=== PATIENT | male | born 1960 | race Caucasian/White ===

== ENCOUNTER 2018-07-20 12:53 | Inpatient (IN) | payer OTHER ==
[2018-07-20 13:33] LABS: #Basophils 0.1 thou/uL (0.0-0.2); #Lymphocytes 1.4 thou/uL (1.20-3.40); #Monocytes 0.7 thou/uL (0.11-0.59); #Neutrophils 5.9 thou/uL (1.40-6.50); %Basophils 0.9 % (0.0-1.0); %Eosinophils 0.6 % (0.0-10.0); %Lymphocytes 17.3 % (21.0-51.0); %Monocytes 8.2 % (0.0-10.0); Hemoglobin 12.8 g/dL (14.0-18.0); Mean Corpuscular HGB CONC 34.1 g/dL (32.0-36.0); Mean Corpuscular Volume 90.9 fL (78.0-98.0); Mean Platelet Volume 8.3 fL (7.4-10.4); Platelet Count 237 thou/uL (130-400); RBC Distribution Width 11.4 % (11.5-14.5); Red Blood Cell (RBC) Count 4.12 mill/uL (4.70-6.10); White Blood Cell (WBC) Count 8.1 thou/uL (4.8-10.8)
--- NOTE | 2018-07-20 13:54 | RAD ---
CHEST TWO VIEWS: HISTORY: Cough and weight loss. FINDINGS: The cardiac silhouette and pulmonary vasculature are unremarkable. The mediastinum is midline. No c onfluent air space consolidation, pneumothorax, or pleural fluid. The lungs are hyperinflated with f lattening of each hemidiaphragm. IMPRESSION: Pulmonary hyperinflation. No active cardiopulmonary abnormalities are otherwise demonstrated. POS: TPC
[2018-07-20 13:56] LABS: ALT (SGPT) 21 U/L (8-55); AST (SGOT) 17 U/L (5-34); Alkaline Phosphatase 108 U/L (40-150); Anion Gap 12 mmol/L (10-20); BUN (Urea Nitrogen) 62 mg/dL (8.4-25.7); Bilirubin, Total 0.4 mg/dL (0.2-1.2); CK (CPK) 183 U/L (30-200); CRP (Inflammatory) Less than 0.50 mg/dL (= or < 0.5); Calc. Creatinine Clearance 0 mL/min (70-130); Calcium 9.3 mg/dL (7.8-10.44); Carbon Dioxide 22 mmol/L (22-29); Chloride 98 mmol/L (98-107); Estimated GFR-MDRD 17; Globulin 2.9 g/dL (2.4-3.5); Glucose 105 mg/dL (70-105); Potassium 5.1 mmol/L (3.5-5.1); Protein, Total 6.9 g/dL (6.0-8.3); Sodium 127 mmol/L (136-145)
[2018-07-20] MEDS ORDERED: Sodium Chloride 0.9% 1,000 ML IV SCH (19:00)
[2018-07-20] MEDS ORDERED: Acetaminophen 325 MG TAB PO PRN (19:23)
[2018-07-20] MEDS ORDERED: hydrALAZINE 20 MG/ML VIAL SLOW IVP PRN (19:23)
[2018-07-20 19:35] VITALS: BMI 25.1
[2018-07-20 20:59] LABS: Free T4 (Free Thyroxine) 1.06 ng/dL (0.70-1.48); Thyroid Stimulating Hormone 2.5432 uIU/mL (0.35-4.94)
[2018-07-20] MEDS: Famotidine 20 MG TAB PO SCH (21:45)
[2018-07-20] MEDS: hydrALAZINE 25 MG TAB PO SCH (21:45)
[2018-07-20] MEDS: Sodium Chloride 0.9% 1,000 ML IV SCH (21:45)
[2018-07-20] MEDS: Heparin 5,000 UNITS/ML VIAL SC SCH (21:47)
--- NOTE | 2018-07-20 23:02 | HP ---
PRIMARY CARE PHYSICIAN: Elizabeth Cook, CAVALRY OFFICER-C CHIEF COMPLAINT: "I've been losing weight and have an upset stomach and diarrhea." HISTORY OF PRESENT ILLNESS: Mr. Gama is a pleasant 57-year-old gentleman, who has a history of hypertension as well as hyperlipidemia. He was in his usual state of health until 3 weeks ago when he began having loose stools and diarrhea. He denies having any blood in his stools, however. He also was complaining of an upset stomach, which was not necessarily pain. He had some nausea as well, but no vomiting, no hematemesis. He also has had night sweats over the last 2 weeks as well as subjective fever. He also says he has been coughing, which has been nonproductive, but no hemoptysis. He also denies any chest pain or shortness of breath or dizziness. No lightheadedness. He says that he lost 30 pounds in the last 3 weeks as a result of these symptoms. He denies having any pain in any other parts of his body. He also denies any foreign travel. No sick contacts. 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 When he was evaluated in the ER, he had a chest x-ray done, which was essentially negative, however, he had an elevated creatinine as well as a low sodium and he is being admitted for further evaluation. REVIEW OF SYSTEMS: All systems are reviewed and are negative except for that mentioned in the history of present illness. PAST MEDICAL HISTORY: Significant for hypertension, hyperlipidemia, and tobacco abuse. PAST SURGICAL HISTORY: He had surgery on his right ear. ALLERGIES: NO KNOWN DRUG ALLERGIES. SOCIAL HISTORY: He is a smoker of a pack a day for 25 years. Denies any alcohol use. 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 FAMILY HISTORY: Significant for hypertension and diabetes. No history of any cancer. MEDICATIONS: Include Lipitor and he says some other blood pressure medication which in the records that appears may be lisinopril and hydrochlorothiazide. PHYSICAL EXAMINATION: GENERAL: He is alert and oriented. He appears to be in no acute distress. He is well developed and well nourished. VITAL SIGNS: Blood pressure is 167/67, heart rate 63, respiratory rate of 18, temperature is 97.9, and O2 saturation is 99% on room air. HEENT: His pupils are equal, round, and reactive. Extraocular muscles are intact. His sclerae are anicteric. Throat, there is no erythema, no exudates. NECK: No adenopathy. He did have a bruit overlying the right carotid. CARDIOVASCULAR: He has a normal S1, S2. I did not appreciate an S3 or S4. No murmurs, clicks or rubs. ABDOMEN: Soft. It is nontender, nondistended. Positive for bowel sounds. There is no rebound, no guarding, no organomegaly. EXTREMITIES: There is no clubbing or cyanosis. No edema. No joint effusions. NEUROLOGIC: His cranial nerves 2 through 12 are intact and his muscle strength is 5/5 in both his upper and lower extremities. SKIN AND INTEGUMENT: There is no skin change and no rash. LABORATORY DATA: White blood cell count 8.1, hemoglobin 12.8, hematocrit is 37.5, and platelet count is 237. Sodium 127, potassium 5.1, chloride is 98, CO2 is 22, BUN of 62, creatinine 3.67, glucose is 105. His liver function tests were normal. Chest x-ray showed moderate hyperexpansion of the lungs. There is no infiltrate or effusions, this is by my reading. ASSESSMENT/PLAN: This is a pleasant 57-year-old gentleman, who presents to the emergency room with multiple medical complaints including upset stomach and diarrhea and was found to have acute renal failure as well as unexplained weight loss. He will be admitted for workup for this. 1. For the acute renal failure, he will be placed on IV fluids as it is likely to be volume related. However, we will also get a renal ultrasound and urine electrolytes to help us differentiate and also get a nephrology consult. 2. Hyponatremia. Again, I suspect this is volume related. We will place him on hydration. Check urine and serum osmolalities to differentiate as previously mentioned, and further recommendations will be based on these results. 3. Unexplained weight loss. We will check thyroid function tests as well as rule him out for tuberculosis even though he has what appears to be a normal chest x-ray and get an abdominal ultrasound as well. 4. Hypertension. We will place him on p.r.n. medication for now holding the lisinopril given the potential for renal failure as well as hyponatremia and he will be placed on deep venous thrombosis and gastrointestinal prophylaxis. Job ID: [id number]
[2018-07-20 23:32] LABS: Creatinine, Urine 45.68 mg/dL (63-166)
[2018-07-21] MEDS: Sodium Chloride 0.9% 1,000 ML IV SCH (03:50)
[2018-07-21 06:53] LABS: #Basophils 0.1 thou/uL (0.0-0.2); #Eosinphils 0.1 thou/uL (0.0-0.7); #Lymphocytes 1.8 thou/uL (1.20-3.40); #Neutrophils 3.6 thou/uL (1.40-6.50); %Eosinophils 1.2 % (0.0-10.0); %Lymphocytes 27.1 % (21.0-51.0); %Monocytes 14.8 % (0.0-10.0); %Neutrophils 55.8 % (42.0-75.0); Hemoglobin 12.8 g/dL (14.0-18.0); Mean Corpuscular Hemoglobin 30.4 pg (27.0-31.0); Mean Corpuscular Volume 92.1 fL (78.0-98.0); Mean Platelet Volume 8.4 fL (7.4-10.4); Platelet Count 225 thou/uL (130-400); RBC Distribution Width 11.5 % (11.5-14.5); Red Blood Cell (RBC) Count 4.19 mill/uL (4.70-6.10); White Blood Cell (WBC) Count 6.5 thou/uL (4.8-10.8)
[2018-07-21 07:16] LABS: Anion Gap 15 mmol/L (10-20); BUN (Urea Nitrogen) 61 mg/dL (8.4-25.7); Calc. Creatinine Clearance 22 mL/min (70-130); Calcium 9.2 mg/dL (7.8-10.44); Carbon Dioxide 21 mmol/L (22-29); Chloride 103 mmol/L (98-107); Estimated GFR-MDRD 16; Glucose 78 mg/dL (70-105); Potassium 5.8 mmol/L (3.5-5.1); Sodium 133 mmol/L (136-145)
--- NOTE | 2018-07-21 08:38 | ULT ---
COMPLETE ABDOMEN ULTRASOUND: Date: 07/21/18 INDICATION: History of nausea, vomiting, and elevated BUN & creatinine. FINDINGS: There are gallbladder stones and sludge present within the gallbladder. Gallbladder wall is within no rmal limits. No pericholecystic fluid or sonographic Dove's sign is present. Visualized aorta and I VC are within normal limits. Pancreas is within normal limits. No focal hepatic lesion is evident. Ri ght kidney measures 9.2 cm in length and left kidney measures 9.4 cm. No focal renal lesion or hydron ephrosis evident. Spleen measures 10.6 cm. Common bile duct measures 6.0 mm. IMPRESSION: Cholelithiasis with gallbladder sludge, without sonographic evidence of acute cholecystitis. POS: BH
[2018-07-21] MEDS: Heparin 5,000 UNITS/ML VIAL SC SCH ×3 (08:51→20:15)
[2018-07-21] MEDS: hydrALAZINE 25 MG TAB PO SCH (08:54)
[2018-07-21] MEDS ORDERED: Metoprolol Tartrate 25 MG TAB PO SCH (09:15)
[2018-07-21] MEDS ORDERED: Sodium Bicarbonate 75 MEQ in Sodium Chloride 0.45% 1,000 ML IV SCH (09:15)
[2018-07-21] MEDS ORDERED: Insulin Regular 300 UNITS/3 ML VIAL IVP SCH (09:15)
[2018-07-21] MEDS ORDERED: Dextrose 50% Abboject 50 ML SYRINGE SLOW IVP SCH (09:15)
[2018-07-21 10:03] LABS: Iron 48 ug/dL (65-175); Iron Binding Capacity, Total 235 mcg/dL (261-462)
[2018-07-21] MEDS ORDERED: Amlodipine 10 MG TAB PO SCH (12:15)
[2018-07-21 12:31] LABS: Bilirubin Negative (Negative); Blood, Urine Negative (Negative); Clarity CLEAR (Clear); Glucose, Urine (Dipstick) 100 mg/dL (Negative); Leukocyte Negative (Negative); Nitrite Negative (Negative); Protein, Urine (Dipstick) Negative (Neg-Trace); Urobilinogen 0.2 mg/dL (0.2-1.0); pH, Urine 5.5 (5.0-9.0)
[2018-07-21 12:33] LABS: Bacteria/HPF None Seen HPF (None Seen); Hyaline Casts/LPF 0-3 HYALINE CAST LPF (0-3 Hyaline); RBC/HPF 0-3 HPF (0-3); Squamous Epithelial None Seen HPF (0-3); WBC/HPF None Seen HPF (0-3)
--- NOTE | 2018-07-21 12:48 | CT ---
CT OF THE THORAX WITHOUT IV CONTRAST INDICATION: Cough COMPARISON: Chest radiograph dated July 20, 2018 TECHNIQUE: Multiple CT images were obtained of the thorax without IV contrast. Axial and coronal refo rmatted images were constructed from the raw data. FINDINGS: LUNGS: Mildly hyperinflated. There are tree-in-bud nodules seen within the apical and posterior segme nt of the right upper lobe Pleural spaces: Clear Lymph nodes: No pathologically enlarged lymph nodes. Heart and great vessels: The lack of IV contrast limits interrogation of the heart and great vessels. There is scattered thoracic and coronary artery calcifications. Upper abdomen: Visualized aspects of the upper abdomen appear within normal limits. Osseous structures: No acute osseous abnormality. There is scattered degenerative and osteoarthritic change present. IMPRESSION: Centrilobular opacities within the right upper lobe can be seen with bronchiolitis of inf ectious or inflammatory etiology.
--- NOTE | 2018-07-21 13:27 | CON ---
DATE OF CONSULTATION: 07/21/2018 CONSULTING PHYSICIAN: Bubba Lutz MD REASON FOR CONSULTATION: BRITTANI and hyponatremia. HISTORY OF PRESENT ILLNESS: A 57-year-old male with past medical history significant for hypertension and hyperlipidemia, who was admitted due to chronic loose stool as well as nausea, vomiting, and cough with sputum production associated with intermittent fever and weight loss of about 30 pounds as well as night sweats. The patient reported poor oral intake in the last two weeks, admitted to night sweats, but denied hemoptysis or recent travel. He is an every day smoker of about a pack a day for more than 40 years. He is still coughing with some nonclear sputum. He denies shortness of breath or chest pain or abdominal pain. He also denied palpitations, headache, dizziness, or leg swelling. The patient denied recreational drug use, but admitted to using Motrin due to the fever. He however did not measure the temperature at home, but admitted to chills. The patient also reported taking Aleve previously for headaches and body aches. 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 The patient was found to have elevated creatinine as well as low sodium necessitating Nephrology consult. Review of medical record showed that the patient had elevated creatinine which dates back to 2011, but he is not aware of chronic kidney disease diagnosis. Baseline creatinine seems to be around 1.5 to 2.0, but on presentation yesterday, creatinine was 3.67 and it did go up to 3.93 today. PAST MEDICAL HISTORY: 1. Hypertension. 2. Hyperlipidemia. 3. Tobacco abuse disorder. PAST SURGICAL HISTORY: Right ear surgery. FAMILY HISTORY: Significant for hypertension and diabetes in both parents who are diseased at this time. SOCIAL HISTORY: The patient is every day smoker of about a pack a day for the last 25 years. Admitted to occasional alcohol use, but denied recreational drug use. The patient is single, but has two children. ALLERGIES: NO KNOWN DRUG ALLERGIES REPORTED. MEDICATIONS: Prior to hospital medications. 1. Lipitor dose is unclear. 2. Metoprolol 12.5 mg p.o. b.i.d. 3. Lisinopril/hydrochlorothiazide 10/12.5 one tablet daily. Current medications. 1. Sodium chloride at 100 mL/h. 2. Pepcid 20 mg p.o. daily. 3. Heparin subcutaneous 5000 units t.i.d. 4. Hydralazine 25 mg p.o. t.i.d. 5. Tylenol 650 mg q.4 hours p.r.n. for pain. 6. Hydralazine 10 mg IV push q.4 p.r.n. for blood pressure elevations. PHYSICAL EXAMINATION: VITAL SIGNS: Temperature 98.5, pulse 60, respiratory rate 18, SpO2 of 95% on room air, and blood pressure is 186/81. GENERAL: Middle-aged male, in no obvious distress. Afebrile. Anicteric. Acyanotic. HEENT: Normocephalic, atraumatic. Pupils are equal and reacting to light. Oral mucosa is moist. NECK: Supple, nontender with full range of motion. No obvious mass was appreciated. CARDIOVASCULAR: Regular rhythm and rate with normal heart sounds one and two. RESPIRATORY: Fair air entry bilaterally with some transmitted sounds and crackles. No obvious rhonchi or use of accessory muscles was appreciated. GI: Full, soft, nontender, nondistended with normal bowel sounds. EXTREMITIES: Grossly normal looking atraumatic with no edema or erythema. Distal pulses are palpable. NEUROLOGIC: Conscious, alert, oriented x3 with appropriate mental status. Cranial nerves 2 through 12 are intact. The patient moves all extremities. DIAGNOSTIC DATA: BMP today showed sodium 133, potassium 5.8, chloride 103, CO2 of 21, anion gap 15, BUN 61, creatinine 3.93, glucose 78, calcium 9.2. Of note, on presentation yesterday, sodium was 127, potassium 5.1, BUN 62, creatinine 3.67. Liver enzymes were unremarkable on presentation. CBC today showed WBC 6.5, hemoglobin 12.8, MCV 92.1, platelet 225. Urine osmolality on July 20 is 291. Urine creatinine on July 20 is 45.68. Urine sodium on July 20 is 62. There is no urinalysis. Chest x-ray performed on July 20 showed pulmonary hyperinflation, but no active cardiopulmonary abnormality noticed. ASSESSMENT AND PLAN: 1. Acute kidney injury: This is superimposed on chronic kidney disease stage 3B. Review of medical records showed the patient had elevated creatinine dating back to 2011 with current baseline of about 1.5 to 2.0. This seems to be hemodynamic related due to chronic poor oral intake and increased gastrointestinal losses. The patient also has metabolic acidosis. Review of medication showed the patient also is on lisinopril and admitted using NSAIDs due to fever. Contribution from NSAID nephropathy cannot be ruled out at this time. Ultrasound of the abdomen showed smallish kidneys measuring 9.2 and 9.4 bilaterally with no mention of echogenicity or obstructive uropathy. We will start the patient on bicarb containing infusion and monitor renal function. We will also get urinalysis. We will plan on getting a formal renal ultrasound if renal function is not improving. 2. Hyperkalemia: Due to metabolic acidosis and chronic kidney disease. We will treat the patient with dextrose infusion with regular insulin as well as Kayexalate. We will repeat BMP with a view to treating the patient further if needed. 3. Hyponatremia: This most likely is due to volume depletion with appropriate ADH secretion. Sodium level is trending up with crystalloid. We will monitor closely. 4. Hypertension: We will start the patient on amlodipine. 5. Cough associated with subjective fever and unintentional weight loss: The patient has some crackles bibasilarly on chest examination, he is a chronic smoker. Bronchopneumonia is a concern. We will get CT of the chest and we will defer antibiotic therapy to the primary attending. 6. Fever: Most likely related to pneumonic process or cholelithiasis. 7. Nausea, vomiting, and diarrhea: This may be related to cholelithiasis with cholecystitis. Of note, ultrasound of the abdomen showed cholelithiasis with gallbladder sludge, but without sonographic evidence of acute cholecystitis. 8. Cholelithiasis with no acute cholecystitis. Many thanks for involving us in the care of this patient. We will follow along with you. Further recommendation to follow depending on hospital course and on review of other diagnostic test. Job ID: [id number]
--- NOTE | 2018-07-21 15:31 | PDOC.PN ---
- Subjective Encounter Start Date: 07/21/18 Encounter Start Time: 15:29 Mr. Gama was seen today in follow-up of unexplained weight loss and renal failure. He is sitting up in bed eating. He does not have any complaints. He denies chest pain or cough. He denies abdominal pain or nausea. He says he does not have any difficulty with eating. - Objective Resuscitation Status - Order Detail: 07/20/18 17:27 Resuscitation Status Routine Resuscitation Status: FULL: Full Resuscitation MAR Reviewed: Yes Vital Signs & Weight: Vital Signs (12 hours) Temp Pulse Resp BP BP Pulse Ox 07/21/18 13:26 72 132/74 07/21/18 08:54 67 169/75 H 07/21/18 08:00 95 07/21/18 07:45 98.5 F 60 18 186/81 H 95 07/21/18 04:00 98.6 F 69 18 158/77 H 98 Weight Weight 170 lb Result Diagrams: 07/21/18 05:54 07/21/18 05:54 Phys Exam - Physical Examination HEENT: PERRLA Respiratory: no wheezing, no rales, no rhonchi, clear to auscultation bilateral Cardiovascular: RRR, no significant murmur, no rub Gastrointestinal: soft, non-tender, no distention, positive bowel sounds Musculoskeletal: no edema, pulses present Neurological: non-focal Dx/Plan (1) Acute renal failure Status: Acute (2) Unexplained weight loss Code(s): R63.4 - ABNORMAL WEIGHT LOSS Status: Acute (3) Hypertension Code(s): I10 - ESSENTIAL (PRIMARY) HYPERTENSION Status: Chronic (4) Tobacco abuse Code(s): Z72.0 - TOBACCO USE Status: Chronic (5) Normocytic anemia Code(s): D64.9 - ANEMIA, UNSPECIFIED Status: Acute (6) Cholelithiases Code(s): K80.20 - CALCULUS OF GALLBLADDER W/O CHOLECYSTITIS W/O OBSTRUCTION Status: Acute - Plan * Acute renal failure vs. Acute on chronic kidney disease. He did not have improvement in his renal function following hydration- there was no evidence of hydronephrosis on ultrasound * Nephrology work-up is in progress. * Hyponatremia- improved * Unexplained weight loss- ? etiology- TB being ruled out- he had an abnormal CT scan of the chest- will consult Pulmonology * HTN- his blood pressure is not well controlled- and Amlodipine has been added * Normocytic anemia- this is consistent with chronic disease * Cholelithiasis- i doubt this is contributing to this present illness as he is able to eat without difficulty does not endorse any biliary symptoms
[2018-07-21 16:23] LABS: Anion Gap 13 mmol/L (10-20); BUN (Urea Nitrogen) 58 mg/dL (8.4-25.7); Calc. Creatinine Clearance 24 mL/min (70-130); Calcium 9.1 mg/dL (7.8-10.44); Carbon Dioxide 25 mmol/L (22-29); Chloride 102 mmol/L (98-107); Estimated GFR-MDRD 17; Glucose 83 mg/dL (70-105); Potassium 5.3 mmol/L (3.5-5.1); Sodium 135 mmol/L (136-145)
[2018-07-21] MEDS: Famotidine 20 MG TAB PO SCH (20:13)
[2018-07-21] MEDS: Metoprolol Tartrate 25 MG TAB PO SCH (20:14)
--- NOTE | 2018-07-22 01:27 | CON ---
DATE OF CONSULTATION: 07/21/2018 HISTORY OF PRESENT ILLNESS: Mr. Gama is a 57-year-old male. He says about 3 weeks ago, he developed diarrhea and he has been having multiple bowel movements since then. There has not been melena or hematochezia. He has also had nausea. He never vomited he said. He has also had sweats and subjective fever. He has had a mild cough. He said his diarrhea appears to have almost resolved, although he is passing a lot of gas today. He said his cough is almost gone as well. He has had no travel out of the country. He has had no exposure to any roadside meal stands or anything that where he might have picked up some contaminated food. PAST MEDICAL HISTORY: Remarkable for hypertension and lipid disorder. SOCIAL HISTORY: He is a smoker. He is not a daily drinker. He is not a drug user. He is employed as a data security administrator. FAMILY HISTORY: Hypertension and diabetes. No history of lung disease in early age. REVIEW OF SYSTEMS: Ten-point review of system completed, otherwise negative. He denies shortness of breath with exertion. PHYSICAL EXAMINATION: GENERAL: On exam, he is a physically fit, afebrile gentleman in no distress. VITAL SIGNS: Heart rate 68, respiratory rate is 18, and blood pressure 132/74. EYES: Pupils are equal. Sclerae are anicteric. NECK: Supple. He has no lymphadenopathy. LUNGS: Clear. HEART: Regular rhythm. S1, S2 are normal. ABDOMEN: Soft and nontender. EXTREMITIES: Without clubbing, cyanosis, or edema. NEURO: Grossly nonfocal. LABORATORY DATA: Sodium 135, potassium 5.3, chloride 102, bicarb 25, BUN 58, and creatinine 3.63. White count 6.5, hemoglobin 12.8, and platelets 225,000. Urinalysis is unremarkable. He has no significant proteinuria. Urine sodium was 62, urine creatinine was 45, and urine osmoles are 291. DIAGNOSTIC STUDIES: CT of his chest showed he had some right upper lobe bronchiolitis. IMPRESSION: Protracted enteritis leading to significant intravascular volume depletion and acute renal insufficiency. I suspect his creatinine will gradually return towards normal. He says his diarrhea has resolved and his cough is resolving. My index of suspicion for tuberculosis is close to zero. He has cholelithiasis, but nothing on abdominal ultrasound that would explain his diarrhea. His kidneys were normal in size. If his diarrhea recurs then still workup would be indicated. Hopefully, his weight will stabilize and he will gradually get his strength back and renal function will return towards normal. This is a 70 minute consult, with greater than 50% of time on unit coordinating care. Job ID: [id number] MTDD
[2018-07-22] MEDS: Sodium Bicarbonate 75 MEQ in Sodium Chloride 0.45% 1,000 ML IV SCH ×2 (08:22→18:30)
[2018-07-22] MEDS: Metoprolol Tartrate 25 MG TAB PO SCH ×2 (08:23→20:38)
[2018-07-22] MEDS: Heparin 5,000 UNITS/ML VIAL SC SCH ×3 (08:23→20:38)
[2018-07-22] MEDS: NIFEdipine XL 60 MG TAB PO SCH (08:24)
--- NOTE | 2018-07-22 08:41 | PRG ---
DATE OF SERVICE: 07/22/2018 SUBJECTIVE: A 57-year-old who is being followed up for acute renal failure. The patient has been having nausea, vomiting, as well as diarrhea prior to presentation. He reports feeling better currently. In the last several days, has only had one bowel motion per day, and nausea and vomiting has subsided. The patient is on TB isolation given night sweats and weight loss of about 30 pounds in the last 3 weeks. OBJECTIVE: VITAL SIGNS: Temperature 98.5, pulse 63, respiratory rate 16, SpO2 of 95% on room air, blood pressure 178/80. GENERAL: Healthy-looking, middle-aged male, in no obvious distress. Afebrile. Anicteric. Acyanotic. HEENT: Normocephalic, atraumatic. Pupils are equal and reacting to light. Oral mucosa is moist. CARDIOVASCULAR: Regular rhythm and rate. Normal heart sounds one and two. RESPIRATORY: Fair air entry bilaterally with some transmitted sounds. Work of breathing is not increased. GASTROINTESTINAL: Full, soft, nontender, nondistended with normal bowel sounds. EXTREMITIES: Grossly normal-looking atraumatic with no edema or erythema. NEUROLOGIC: Conscious, alert, and oriented x3 with appropriate mental status. Cranial nerves 2 through 12 are intact. DIAGNOSTIC DATA: BMP today showed sodium 135, potassium 5.3, chloride 102, CO2 of 25, anion gap 13, BUN 58, creatinine 3.63, glucose 83, calcium 9.1. ASSESSMENT AND PLAN: 1. Acute kidney injury: This is superimposed on chronic kidney disease stage 3B. Most likely related to hemodynamic factors due to volume depletion in a patient taking RAAS luc. The patient also admitted to using NSAIDs. Creatinine and BUN are beginning to trend downwards. We will continue IV fluid and monitor renal function. 2. Chronic kidney disease stage 3B: Etiology is unclear, but the patient admitted to use of NSAIDs in the past. Also, kidney sizes on the small size measuring 9.2 and 9.4, pointing to chronic kidney disease. 3. Hyperkalemia: Due to metabolic acidosis and chronic kidney disease with acute kidney injury. Treated medically yesterday with dextrose infusion and insulin, as well as Kayexalate with improvement from 5.8 to 5.3. We will give additional Kayexalate today. 4. Hyponatremia: Most likely due to volume depletion with appropriate ADH secretion. Sodium is trending up with crystalloid. We will continue to monitor. 5. Hypertension: Control is still inadequate. We will substitute amlodipine with nifedipine 60 mg daily with a view to escalating dose, if needed. We will continue hydralazine IV pushes p.r.n. for acute elevations in blood pressure. 6. Presumed gastroenteritis given nausea, vomiting, and diarrhea. Deferred to primary attending. 7. Cholelithiasis with no evidence of acute cholecystitis. No acute issues. Job ID: [id number]
[2018-07-22] MEDS ORDERED: Amlodipine 10 MG TAB PO SCH (09:00)
--- NOTE | 2018-07-22 14:11 | PDOC.PN ---
- Subjective Encounter Start Date: 07/22/18 Encounter Start Time: 13:10 Mr. Gama was seen today in follow-up of acute renal failure and unexplained weight loss. Today he does not have any complaints. He is wondering how long he has to be in the hospital. He says the diarrhea has all but stopped. He had a formed stool today. He denies abdominal pain or nausea or vomiting. He did not have any trouble eating yesterday. - Objective Resuscitation Status - Order Detail: 07/20/18 17:27 Resuscitation Status Routine Resuscitation Status: FULL: Full Resuscitation MAR Reviewed: Yes Vital Signs & Weight: Vital Signs (12 hours) Temp Pulse Resp BP Pulse Ox 07/22/18 11:31 98.3 F 61 18 171/83 H 96 07/22/18 08:24 65 07/22/18 08:00 98.3 F 65 18 126/82 96 Weight Admit Weight 170 lb Weight 170 lb Result Diagrams: 07/21/18 05:54 07/21/18 15:53 Phys Exam - Physical Examination HEENT: PERRLA Respiratory: no wheezing, no rales, no rhonchi, clear to auscultation bilateral Cardiovascular: RRR, no significant murmur, no rub Gastrointestinal: soft, non-tender, no distention, positive bowel sounds Musculoskeletal: no edema Neurological: non-focal, normal sensation Dx/Plan (1) Acute renal failure Status: Acute Comment: Acute on chronic kidney injury (2) Unexplained weight loss Code(s): R63.4 - ABNORMAL WEIGHT LOSS Status: Acute (3) Hypertension Code(s): I10 - ESSENTIAL (PRIMARY) HYPERTENSION Status: Chronic (4) Tobacco abuse Code(s): Z72.0 - TOBACCO USE Status: Chronic (5) Normocytic anemia Code(s): D64.9 - ANEMIA, UNSPECIFIED Status: Chronic (6) Cholelithiases Code(s): K80.20 - CALCULUS OF GALLBLADDER W/O CHOLECYSTITIS W/O OBSTRUCTION Status: Acute - Plan * Acute on chronic kidney disease- this is likely from volume depletion due to diarrhea as well as NSAID use and MARVA-I. Continue IV hydration * Lisinopril is on hold * Gastroenteritis- resolving * HTN- blood pressure is not optimally controlled- Amlodipine was changed to Procardia * Unexplained weight loss- TB is unlikely - await Quantiferon Gold result * Anemia- likely from chronic disease- but patient should have outpatient Colonoscopy if he has not recently.
[2018-07-22 15:27] LABS: Anion Gap 11 mmol/L (10-20); BUN (Urea Nitrogen) 43 mg/dL (8.4-25.7); Calc. Creatinine Clearance 36 mL/min (70-130); Calcium 8.7 mg/dL (7.8-10.44); Carbon Dioxide 27 mmol/L (22-29); Chloride 102 mmol/L (98-107); Estimated GFR-MDRD 28; Glucose 113 mg/dL (70-105); Potassium 4.2 mmol/L (3.5-5.1); Sodium 136 mmol/L (136-145)
--- NOTE | 2018-07-22 16:30 | PRG ---
DATE OF SERVICE: 07/22/2018 SUBJECTIVE: David Gama has no complaints. He has no abdominal cramping. He has had no diarrhea. He is eating a solid diet with no problems. OBJECTIVE: VITAL SIGNS: He is afebrile, heart rate is 61, respiratory rate is 18, oximetry is 96% on room air. Blood pressure 126/82 this morning, 171/83 this afternoon LUNGS: Clear. HEART: Regular rhythm. ABDOMEN: Soft. LABORATORY DATA: Creatinine is 3.63 yesterday afternoon. There is no lab work done today for some reason. He actually looks quite well other than having an elevated creatinine. He is pushing fluids adequately and could continue to hydrate and have his renal function monitored as an outpatient. His radiographic abnormalities are likely created by the same infection that gave him diarrhea. He just needs a chest x-ray with me in 4 to 6 weeks. We will recheck a Chem-7 today. Job ID: [id number]
[2018-07-22] MEDS: Famotidine 20 MG TAB PO SCH (20:38)
[2018-07-23] MEDS: Sodium Bicarbonate 75 MEQ in Sodium Chloride 0.45% 1,000 ML IV SCH (02:33)
[2018-07-23 07:27] LABS: Albumin 3.2 g/dL (3.5-5.0); Anion Gap 10 mmol/L (10-20); BUN (Urea Nitrogen) 31 mg/dL (8.4-25.7); BUN/Creatinine Ratio 14.22; Calc. Creatinine Clearance 40 mL/min (70-130); Calcium 8.5 mg/dL (7.8-10.44); Carbon Dioxide 30 mmol/L (22-29); Chloride 103 mmol/L (98-107); Estimated GFR-MDRD 31; Glucose 89 mg/dL (70-105); Phosphorus 2.8 mg/dL (2.3-4.7); Potassium 4.2 mmol/L (3.5-5.1); Sodium 139 mmol/L (136-145)
[2018-07-23] MEDS: Metoprolol Tartrate 25 MG TAB PO SCH (08:05)
[2018-07-23] MEDS: NIFEdipine XL 60 MG TAB PO SCH (08:05)
[2018-07-23] MEDS: Heparin 5,000 UNITS/ML VIAL SC SCH (08:05)
[2018-07-23] MEDS ORDERED: Sodium Chloride 0.9% 1,000 ML IV SCH (08:45)
--- NOTE | 2018-07-23 09:43 | PRG ---
DATE OF SERVICE: 07/23/2018 SUBJECTIVE: A 57-year-old male with past medical history significant for hypertension and hyperlipidemia as well as tobacco abuse disorder, who was admitted due to worsening weakness and diarrhea associated with unintentional weight loss. We are seeing the patient for hyponatremia and acute kidney injury. The patient reports feeling a lot better. Nausea, vomiting, and frequent loose stools have all subsided. The patient is tolerating oral intake. He is still coughing, but with minimal or no sputum production. Denies shortness of breath, leg swelling, abdominal pain, chest pain, headache, or fever. OBJECTIVE: VITAL SIGNS: Temperature 98.2, pulse 72, respiratory rate 18, SpO2 of 94 on room air, and blood pressure is 173/73. GENERAL: Healthy-looking, middle-aged male, in no obvious distress. Afebrile. Anicteric. Acyanotic. HEENT: Normocephalic and atraumatic. Oral mucosa is moist. CARDIOVASCULAR: Regular rhythm and rate. Normal heart sounds 1 and 2. No obvious murmur was appreciated. RESPIRATORY: Good air entry bilaterally with some transmitted sounds. No obvious crackle or rhonchi or use of accessory muscles appreciated. GI: Full, soft, nontender, and nondistended with normal bowel sounds. EXTREMITIES: Grossly normal looking, atraumatic with no edema or erythema. NEUROLOGIC: Conscious, alert, oriented x3 with appropriate mental status. Cranial nerves 2 through 12 are intact. The patient moves all extremities. The patient is ambulant. DIAGNOSTIC DATA: Renal function panel showed sodium 139, potassium 4.2, chloride 103, CO2 of 30, anion gap 10, BUN 31, creatinine 2.18, glucose 89, and calcium 8.5. Phosphorus 2.8. Albumin 3.2. ASSESSMENT AND PLAN: 1. Acute kidney injury: This is superimposed on chronic kidney disease stage 3. Most likely due to hemodynamic factors related to volume depletion in a patient using RAAS luc and NSAIDs. Creatinine and BUN are trending downwards. Baseline is unknown, however. We will continue IV fluids and monitor renal function. 2. Metabolic acidosis: Due to excessive alkaline losses in GI due to frequent loose stool as well as chronic kidney disease. Resolved with bicarb containing IV fluids. We will substitute bicarb containing fluid with normal saline as CO2 is 30 today. 3. Hyperkalemia: Resolved. 4. Hyponatremia: Due to volume depletion with appropriate antidiuretic hormone secretion. 5. Hypertension: Control is better, but still suboptimal. In the last 24 hours, systolic blood pressure ranged from 110 to 170. We will continue current regimen of nifedipine 60 daily and metoprolol 12.5 b.i.d. Monitor BP. 6. Presumed gastroenteritis: Resolved. 7. Cholelithiasis with no acute cholecystitis. 8. Unintentional weight loss with cough: Cough has subsided. CT showed tree-in-bud, suggestive of bronchiolitis. QuantiFERON-Gold is awaited at this time. 9. Chronic kidney disease, stage 3B. Ultrasound showed small kidneys. The patient admitted to NSAID use in the past. This may well be related to NSAID nephropathy. We will continue IV fluids and see where creatinine stabilizes, which will be the new baseline. DISPOSITION: Continue IV fluids for the next 24 hours. However, if discharge is deemed appropriate at this time, the patient can be discharged to follow up in 1 week with repeat renal function test. Job ID: [id number]
--- NOTE | 2018-07-23 09:59 | PRG ---
DATE OF SERVICE: 07/23/2018 SUBJECTIVE: Mr. Gama says he feels great. He is mildly hypertensive this morning. OBJECTIVE: VITAL SIGNS: He is afebrile. Heart rate is in 70s and oximetry is 94 on room air. LUNGS: Clear. HEART: Regular rhythm. ABDOMEN: Nontender. LABORATORY DATA: Sodium is 139, potassium 4.2, chloride 103, bicarb 30, BUN 31, and creatinine 2.18. ASSESSMENT AND PLAN: I suspect his renal function will be back to normal within a week to 10 days. In my opinion, he is stable for discharge. I have given my phone number. I would like to see him in six weeks with a chest x-ray. Job ID: [id number]
[2018-07-23 14:43] VITALS: BP 123/82; TEMP 98.6
--- NOTE | 2018-07-23 21:59 | DIS ---
DATE OF ADMISSION: 07/20/2018 DATE OF DISCHARGE: 07/23/2018 DISCHARGE DIAGNOSES: 1. Acute kidney injury on chronic kidney disease, improved. 2. Unexplained weight loss. 3. Hypertension, chronic. 4. Tobacco abuse. 5. Normocytic anemia, secondary to chronic kidney disease. 6. Hyponatremia, resolved. 7. Hyperkalemia, resolved. 8. Bronchiolitis, unclear etiology. CONSULTATIONS: 1. Jennifer Casarez Obi, MD, with Nephrology Service. 2. Dario Griffin MD, with Pulmonology Critical Care Service. PERTINENT LAB AND X-RAY FINDINGS: Sodium ranged between 127 to 139, potassium ranged between 4.2 to 5.8, creatinine ranged between 2.18 to 3.93. Estimated GFR ranged between 16 to 31, phosphorus 2.8, serum iron level 48, TIBC 235, ferritin 234, TSH 2.54, free T4 of 1.06. Serum cortisol level 13.6. CBC showed hemoglobin 12.8, hematocrit 39. Portable chest x-ray dated 07/20/2018, showed pulmonary hyperinflation without acute process. CT of the chest dated 07/21/2018, showed centrilobular opacities within the right upper lobe seen with bronchiolitis. Abdominal ultrasound dated 07/21/2018, showed cholelithiasis with gallbladder sludge without evidence of acute cholecystitis. HOSPITAL COURSE: The patient was initially admitted to the medical floor after presenting with weight loss and diarrhea. The patient underwent extensive evaluation including portable chest imaging and CT of the chest showing evidence of bronchiolitis of unclear significance. The patient was also noted with metabolic derangements including acute kidney injury with hyponatremia and hyperkalemia. The patient was placed on IV fluids and avoid nephrotoxic agents with serial monitoring of creatinine showing overall improving values. The patient was evaluated by the Nephrology Service with volume replacement in addition to bicarbonate infusions due to metabolic acidosis. The patient's presentation is likely volume mediated in addition to iatrogenic with the use of NSAIDs in conjunction with volume loss through diarrhea and poor oral intake. The patient underwent evaluation by the Pulmonology Service due to chest imaging findings showing evidence of bronchiolitis. A QuantiFERON gold was performed, however, was pending at the time of this dictation. The patient also underwent adjustment to his medication regimen for blood pressure control and may need additional titration of his regimen on an ongoing basis after discharge. I have examined the patient at the time of discharge and discussed followup instructions. The patient verbalized understanding and in agreement and ready for discharge on 07/23/2018. DISCHARGE MEDICATIONS: 1. Gabapentin 100 mg p.o. q.a.m. 2. Metoprolol tartrate 12.5 mg p.o. b.i.d. 3. Procardia XL 60 mg p.o. daily. 4. Zocor 40 mg p.o. at bedtime. FOLLOWUP: The patient may follow up with his primary care provider, Dr. Elizabeth Cook, within 7 days of discharge. The patient will follow up with Dr. Dario Griffin with Pulmonology Service, 6 weeks after discharge. The patient will follow up with Dr. Bella with Nephrology Service within 7 days of discharge. CONDITION ON DISCHARGE: Stable. ACTIVITY: Ad-mercy. DIET: Heart healthy. CODE STATUS: Full. DISPOSITION: Home, 07/23/2018. TIME SPENT: Total time preparing and coordinating discharge, 32 minutes. Job ID: [id number]
== END 2018-07-23 14:46 | disposition home or self-care (01) | DRG 202 ==
LOC: ERS 12:53 → ERHOLD 15:53 → T4-B 19:07
PROVIDERS: ADMIT Internal Medicine; ATTEND Internal Medicine
DX: J21.9 Acute bronchiolitis, unspecified (principal); N17.9 Acute kidney failure, unspecified; E87.1 Hypo-osmolality and hyponatremia; E87.2 Acidosis; K52.9 Noninfective gastroenteritis and colitis, unspecified; E78.5 Hyperlipidemia, unspecified; F17.210 Nicotine dependence, cigarettes, uncomplicated; R63.4 Abnormal weight loss; N18.3 Chronic kidney disease, stage 3 (moderate); I12.9 Hypertensive chronic kidney disease with stage 1 through stage 4 chronic kidney disease, or unspecified chronic kidney disease; E87.5 Hyperkalemia; K80.20 Calculus of gallbladder without cholecystitis without obstruction; D63.1 Anemia in chronic kidney disease; E86.9 Volume depletion, unspecified; Z68.25 Body mass index [BMI] 25.0-25.9, adult; Z79.899 Other long term (current) drug therapy
CPT/HCPCS: 36415; 71046; 71250; 76700; 80048; 80053; 80069; 81001; 82533; 82550; 82570; 82728; 83540; 83550; 83930; 83935; 84300; 84439; 84443; 85025; 86140; 86480; 96360; 96361; 99406; J1644; J1815; J3370

== ENCOUNTER 2018-10-03 04:25 | Emergency (ER) | payer OTHER, SELFPAY ==
[2018-10-03] MEDS ORDERED: Nitroglycerin 0.4 MG TAB 1 EACH ONE (04:30)
[2018-10-03] MEDS ORDERED: Nitroglycerin 50 MG/250 ML BOT 250 ML ONE (04:30)
[2018-10-03] MEDS ORDERED: Aspirin Chewable 81 MG TAB ONE (04:38)
[2018-10-03 04:57] LABS: #Basophils 0.1 thou/uL (0.0-0.2); #Eosinphils 0.3 thou/uL (0.0-0.7); #Lymphocytes 1.8 thou/uL (1.20-3.40); #Monocytes 0.6 thou/uL (0.11-0.59); #Neutrophils 8.8 thou/uL (1.40-6.50); %Eosinophils 2.3 % (0.0-10.0); %Lymphocytes 15.5 % (21.0-51.0); %Monocytes 5.1 % (0.0-10.0); %Neutrophils 76.1 % (42.0-75.0); Hemoglobin 14.8 g/dL (14.0-18.0); Mean Corpuscular Hemoglobin 29.8 pg (27.0-31.0); Mean Platelet Volume 8.4 fL (7.4-10.4); Platelet Count 251 thou/uL (130-400); RBC Distribution Width 12.5 % (11.5-14.5); Red Blood Cell (RBC) Count 4.97 mill/uL (4.70-6.10); White Blood Cell (WBC) Count 11.5 thou/uL (4.8-10.8)
[2018-10-03 05:01] LABS: Actual Bicarbonate (HCO3a) 24.7 mEq/L (22-28); Analyzer IN Cardio ER; Base Excess (BEa) -0.1 mEq/L (-2.0 to +3.0); CO2 Tension 40.8 mmHg (35.0-45.0); Calcium, Ionized 1.15 mmol/L (1.12-1.30); Carboxyhemoglobin (COHb) 2.9 gm% (0.0-3.0); Hemoglobin (Hb) 14.6 g/dL (14.0-18.0); Potassium - ABG Lab 3.79 mmol/L (3.70-5.30)
[2018-10-03 05:03] LABS: O2 Tension (PaO2) 58.5 mmHg (80.0-100.0)
[2018-10-03 05:04] LABS: Puncture Site R RADIAL
[2018-10-03 05:24] LABS: ALT (SGPT) 10 U/L (8-55); AST (SGOT) 17 U/L (5-34); Albumin 4.3 g/dL (3.5-5.0); Alkaline Phosphatase 111 U/L (40-150); Anion Gap 13 mmol/L (10-20); BUN (Urea Nitrogen) 12 mg/dL (8.4-25.7); Bilirubin, Total 0.6 mg/dL (0.2-1.2); Calc. Creatinine Clearance 0 mL/min (70-130); Carbon Dioxide 28 mmol/L (22-29); Chloride 100 mmol/L (98-107); Estimated GFR-MDRD 35; Globulin 3.3 g/dL (2.4-3.5); Glucose 114 mg/dL (70-105); Potassium 3.9 mmol/L (3.5-5.1); Protein, Total 7.6 g/dL (6.0-8.3); Sodium 137 mmol/L (136-145)
[2018-10-03 05:46] LABS: CKMB 5.1 ng/mL (0-6.6)
[2018-10-03] MEDS ORDERED: Esmolol 2,500 MG/250 ML 250 ML ONE (06:28)
[2018-10-03] MEDS ORDERED: Esmolol 2,500 MG/250 ML 250 ML IVPB SCH (06:30)
--- NOTE | 2018-10-03 07:13 | RAD ---
CHEST 1 VIEW: Date: 10/03/18 INDICATION: Pulmonary vascular congestion and difficulty breathing. FINDINGS: There are bibasilar air space opacities and small bilateral pleural effusions with pulmonary vascular congestion and mild cardiomegaly. No acute osseous abnormality is evident. IMPRESSION: Findings suspicious for mild CHF. This is new from a comparison dated 07/20/18. POS: BH
--- NOTE | 2018-10-03 08:08 | CT ---
CTA AORTIC DISSECTION PROTOCOL WITH IV CONTRAST AND 3D REFORMATTED IMAGING. COMPARISON: Prior CTA aorta with bilateral lower extremity runoff dated 01/27/2012. FINDINGS: There is hazy airspace opacity seen bilaterally with prominence of the pulmonary vasculature and more prominent airspace opacity within both lower lobes. There is moderate right and small left pleural effusion. There is mild cardiomegaly and mild pericardial effusion. There are mildly prominent lymph nodes within the mediastinum. One of the largest seen within the pr etracheal region measures 1.2 cm. There is an enlarged subcarinal lymph node measuring 1.3 cm. The liver demonstrates a 1.1 cm enhancing lesion within the peripheral aspect of segment 7 of the rig ht hepatic lobe. Additional smaller focal enhancing lesion is seen within segment 5 of the right hep atic lobe measuring 8 mm. The pancreas and adrenal glands are normal-appearing. The kidneys appear to enhance symmetrically. The spleen is normal-appearing. No free fluid or enlarged lymph nodes are evident. Small and large bowel appear within normal limits. No acute osseous abnormality is evident. There is complete occlusion of the infrarenal abdominal aorta with thrombus seen extending into both common iliac arteries. This is new from the 2012 examination. There is also thrombus of the abdomin al aorta at the level of the renal arteries causing moderate to severe narrowing of both renal arteri es. There is diffuse wall thickening involving portions of the SMA and celiac arteries, but these arterie s appear to be widely patent. ELIZABETH artery is occluded from its origin but appears to reconstitute thr ough collaterals. IMPRESSION: 1. 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 The chronicity of this finding is difficult to determine based on the provided comparison study; powell hosea, I would have to assume that this is an acute occlusion if the patient is symptomatic. 2. Moderate to severe narrowing of the renal arteries bilaterally due to the superior extent of the abdominal aortic thrombus. 3. Findings suggesting either volume overload or congestive heart failure with hazy airspace opaciti es, pulmonary vascular congestion, and bilateral pleural effusions bilaterally. Heart size is mildly prominent. 4. More patchy confluent opacities within both lower lobes may reflect confluent airspace edema; how ever, component of pneumonia or aspiration is not excluded. There are enlarged lymph nodes within th e mediastinum which may be reactive in nature. CT followup to document resolution is recommended. 5. Nonspecific enhancing lesions within the right hepatic lobe may reflect small flash-filling capil kristine hemangiomas. Arterially enhancing metastatic disease is felt to be less likely but cannot be en tirely excluded. Followup CT examination utilizing a multiphase hemangioma protocol in 6-8 weeks to document stability is recommended. 6. Findings were called to Dr. Toney at 6:00 a.m. on 10/03/2018. CODE CR POS: BH
== END 2018-10-03 07:54 | disposition short-term general hospital (02) ==
LOC: ERS 04:25
DX: I71.00 Dissection of unspecified site of aorta (principal); I10 Essential (primary) hypertension; E78.5 Hyperlipidemia, unspecified; F17.210 Nicotine dependence, cigarettes, uncomplicated; Z79.899 Other long term (current) drug therapy
CPT/HCPCS: 71045; 71275; 80053; 82553; 82805; 83880; 84484; 85025; 93005; 94660; 96365; 96366; 96368

== ENCOUNTER 2019-11-07 09:10 | Outpatient (CLI) | payer OTHER ==
--- NOTE | 2019-11-07 10:09 | RAD ---
CHEST 2 VIEWS: Date: 11/07/2019 HISTORY: History of aortic dissection. COMPARISON: 07/20/2018. FINDINGS: Heart size is within normal limits. The lungs are clear of acute process. Minimal bilateral pleural t hickening. No confluent pneumonia, overt edema, or other acute process. Heart size is normal. IMPRESSION: Evidence for minimal bilateral pleural thickening. No confluent pneumonia, overt edema, or other acut e process. Mild atherosclerosis of aorta. POS: OFF
== END 2019-11-07 09:11 | disposition home or self-care (01) ==
LOC: RAD-FRANK 09:10
PROVIDERS: ATTEND Nurse Practitioner Family
DX: I12.9 Hypertensive chronic kidney disease with stage 1 through stage 4 chronic kidney disease, or unspecified chronic kidney disease (principal); N18.9 Chronic kidney disease, unspecified; D63.1 Anemia in chronic kidney disease; M62.81 Muscle weakness (generalized); I77.9 Disorder of arteries and arterioles, unspecified; I65.23 Occlusion and stenosis of bilateral carotid arteries; J44.9 Chronic obstructive pulmonary disease, unspecified; I21.4 Non-ST elevation (NSTEMI) myocardial infarction; I71.9 Aortic aneurysm of unspecified site, without rupture; J92.9 Pleural plaque without asbestos; I70.0 Atherosclerosis of aorta; Z92.89 Personal history of other medical treatment; Z95.5 Presence of coronary angioplasty implant and graft; Z87.448 Personal history of other diseases of urinary system; Z87.19 Personal history of other diseases of the digestive system; Z86.718 Personal history of other venous thrombosis and embolism; Z86.79 Personal history of other diseases of the circulatory system
CPT/HCPCS: 71046

== ENCOUNTER 2020-01-28 08:32 | Outpatient (CLI) | payer OTHER ==
--- NOTE | 2020-01-28 10:28 | ULT ---
RENAL ULTRASOUND: INDICATION: History of chronic kidney disease. COMPARISON: Prior CTA of the abdomen and pelvis dated 10/03/2018. FINDINGS: The right kidney has a right renal cortical thickness of 1.7 cm and measures 8.6 x 4.9 x 4.9 cm. No hydronephrosis is demonstrated. The left kidney measures 9.3 x 4.9 x 4.5 cm and has a left renal cor tical thickness of 1.9 cm. The prevoid bladder volume was 249 cc. No intraluminal mass is evident. IMPRESSION: 1. No focal solid renal lesion or hydronephrosis demonstrated. 2. The visualized bladder was normal-appearing. 3. No renal cortical thinning demonstrated. POS: BH
== END 2020-01-28 08:33 | disposition home or self-care (01) ==
LOC: BICULT 08:32
PROVIDERS: ATTEND Internal Medicine Nephrology
DX: N18.30 Chronic kidney disease, stage 3 unspecified (principal)
CPT/HCPCS: 76770

== ENCOUNTER 2020-02-20 08:06 | Outpatient (CLI) | payer OTHER ==
--- NOTE | 2020-02-20 10:27 | RAD ---
PA AND LATERAL CHEST: Date: 02/20/2020 HISTORY: Chronic renal disease. Dyspnea. COMPARISON: 11/07/2019 exam. FINDINGS: Heart size and mediastinum are within normal limits. Lungs are clear of any infiltrates. There is della e flattening to the hemidiaphragms. There are arthritic changes of the spine. IMPRESSION: No active intrathoracic disease. POS: TODD
== END 2020-02-20 08:07 | disposition home or self-care (01) ==
LOC: BICRAD 08:06
PROVIDERS: ATTEND Internal Medicine Nephrology
DX: N18.30 Chronic kidney disease, stage 3 unspecified (principal)
CPT/HCPCS: 71046

== ENCOUNTER 2020-04-22 10:05 | Inpatient (IN) | payer OTHER ==
[2020-04-22] MEDS ORDERED: Morphine 4 MG/ML VIAL ONE (10:33)
[2020-04-22] MEDS ORDERED: Ondansetron PF 4 MG/2 ML Vial ONE (10:33)
[2020-04-22] MEDS ORDERED: Fentanyl 100 MCG/2 ML VIAL ONE (11:10)
[2020-04-22] MEDS ORDERED: Nitroglycerin 0.4 MG TAB 1 EACH ONE (11:10)
[2020-04-22 11:54] LABS: ALT (SGPT) 28 U/L (8-55); AST (SGOT) 45 U/L (5-34); Albumin 3.9 g/dL (3.4-4.8); Alkaline Phosphatase 89 U/L (40-110); Anion Gap 14 mmol/L (10-20); BUN (Urea Nitrogen) 18 mg/dL (8.4-25.7); Bilirubin, Total 0.4 mg/dL (0.2-1.2); Calc. Creatinine Clearance 0 mL/min (70-130); Calcium 8.9 mg/dL (7.8-10.44); Carbon Dioxide 22 mmol/L (23-31); Chloride 107 mmol/L (98-107); Globulin 3.1 g/dL (2.4-3.5); Glucose 91 mg/dL (80-115); Lipase 28 U/L (8-78); Potassium 5.4 mmol/L (3.5-5.1); Sodium 138 mmol/L (136-145)
[2020-04-22] MEDS ORDERED: Enoxaparin Sodium 100 MG/ML SYRINGE ONE (12:08)
--- NOTE | 2020-04-22 12:10 | RAD ---
AP CHEST: HISTORY: Shortness of breath. COMPARISON: 02/20/2020. FINDINGS/IMPRESSION: No evidence of infiltrate or vascular congestion. Borderline cardiomegaly. No acute finding or sign ificant interval change. POS: OFF
[2020-04-22 12:41] LABS: INR-International Normal Ratio 0.9; Prothrombin Time 12.7 sec (12.0-14.7)
[2020-04-22 13:22] LABS: Anion Gap 14 mmol/L (10-20); BUN (Urea Nitrogen) 18 mg/dL (8.4-25.7); Calc. Creatinine Clearance 0 mL/min (70-130); Calcium 8.7 mg/dL (7.8-10.44); Carbon Dioxide 23 mmol/L (23-31); Chloride 107 mmol/L (98-107); Glucose 118 mg/dL (80-115); Potassium 4.5 mmol/L (3.5-5.1); Sodium 139 mmol/L (136-145)
[2020-04-22 14:50] LABS: Troponin I 0.038 ng/mL (< 0.028)
[2020-04-22] MEDS ORDERED: D5 1/2 NS w/20 mEq KCL 0 ML ONE (15:12)
[2020-04-22] MEDS ORDERED: Ondansetron ODT 4 MG TAB PO PRN (15:52)
[2020-04-22] MEDS ORDERED: Acetaminophen 325 MG TAB PO PRN (15:52)
--- NOTE | 2020-04-22 17:47 | HP ---
CONSULTATIONS ON THE CASE: Indu Rausch MD, Cardiology. REASON FOR ADMISSION: "My chest hurts." HISTORY OF PRESENT ILLNESS: This is a very pleasant 59-year-old gentleman, who was admitted to the hospital services with complaints of chest pressure that started around 8:30 early this morning after the patient woke up. According to the patient, he had a history of myocardial infarction in 2019 where a stent placement was done. Usually follows up with Dr. Koko Nava for his cardiac needs and 1 week ago, the patient had a stress test evaluation done, which according to him was abnormal. At that point of time, an echocardiogram done showed evidence of an ejection fraction of 30% on his left ventricular function. The patient was advised by his primary foundry molder for a possibility of cardiac cath at some point of time, but then unfortunately at 8:30 this morning, he had chest pain as explained above. Currently, the patient is chest pain-free. No other complaints of shortness of breath, abdominal pain, fever, rigors, chills, nausea, vomiting, diaphoresis, blurring of vision, tingling, numbness, burning micturition, constipation, claudication, anxiety, depression, hematuria, hematochezia, cough, expectoration, syncope, seizures, paroxysmal nocturnal dyspnea, or orthopnea has been noted at this point of time. PAST MEDICAL HISTORY: 1. Benign essential hypertension. 2. Hyperlipidemia. 3. Congestive heart failure with suspected ejection fraction of 30%. 4. Coronary artery disease with history of PTCA with history of myocardial infarction in September 2019. SOCIAL HISTORY: The patient denies tobacco, alcohol, or recreational drug abuse. FAMILY HISTORY: Of benign essential hypertension in his paternal side. ALLERGIES: NO KNOWN DRUG ALLERGIES. PAST SURGICAL HISTORY: History of cardiac cath done in September 2019. MEDICATIONS: At home, the patient takes: 1. Neurontin 100 mg daily. 2. Metoprolol tartrate 12.5 mg b.i.d. 3. Procardia XL 60 mg daily. 4. Simvastatin 40 mg daily. 5. Also takes Coreg. Other medications to be updated. REVIEW OF SYSTEMS: Except as documented all systems reviewed and negative. PHYSICAL EXAMINATION: GENERAL: This is a 59-year-old gentleman, lying in his hospital bed, currently not in acute distress. Alert, oriented. Has an airway, which is clear. VITAL SIGNS: Blood pressure of 138/62 mmHg, heart rate of 80 per minute, respiratory rate of 16 per minute, saturation of 98% on room air. HEENT: Atraumatic, normocephalic. NECK: Supple. No bruit. No lymphadenopathy. No JVD. CVS: S1 and S2. No abnormal rhythms or murmurs. CHEST: Bilateral air entry present. No rhonchi. No wheeze. ABDOMEN: Soft, nontender. Bowel sounds are present. No organomegaly. EXTREMITIES: No cyanosis. Nonicteric. No pallor. No edema. NEUROLOGIC: The patient is alert, oriented x3. No focal motor or sensory deficits noted. HEME: No ecchymosis or petechiae. PSYCH: No depression or anxiety. SKIN: Intact. DIAGNOSTIC STUDIES: INR is 0.9. Sodium 138, potassium is 4.5, chloride 107, carbon dioxide 23, anion gap is 14, BUN 18, creatinine 1.60, AST 45, ALT 28. Troponin 0.024 and 0.038. BNP 361. Albumin is 3.9, lipase is 28. ASSESSMENT: 1. Suspected [id number] myocardial infarction. The patient is currently on Lovenox 1 mg/kg body weight for 4 doses for the next [address] Indu Rausch has been consulted from the emergency room. The patient received IV nitroglycerin drip initially. Currently, this has been tapered off. 2. Benign essential hypertension. 3. Hyperlipidemia. 4. History of myocardial infarction, status post percutaneous transluminal coronary angioplasty in September 2019. 5. Congestive heart failure. The patient claims he had an ejection fraction of 30% with recent echocardiogram. 6. Recent stress test evaluation done in his primary foundry molder office 1 week ago, which was normal. PLAN: Discussed in detail of the diagnosis, treatment, and followup with the patient. Advised the patient about followup care by Cardiology Services in hospital. I expect the patient to admit to the hospital services for more than 2 midnights. We will continue Lovenox for next 3 doses as one therapeutic dose has already been given. GI prophylaxis to continue. Discharge planning will depend on further hospital course. We will follow official consultation evaluation by Cardiology Services. Advance directives are full code. Job ID: [id number]
[2020-04-22 17:51] VITALS: BMI 31.6
[2020-04-22 18:32] LABS: Troponin I 0.026 ng/mL (< 0.028)
[2020-04-22] MEDS ORDERED: Communication Order-Pharmacy FS SCH (19:30)
[2020-04-22] MEDS ORDERED: Carvedilol 6.25 MG TAB PO SCH (19:45)
--- NOTE | 2020-04-22 19:55 | CON ---
DATE OF CONSULTATION: 04/22/2020 PRIMARY TRANSITION MANAGER: Dr. Koko Nava. REASON FOR CONSULTATION: Unstable angina. HISTORY OF PRESENT ILLNESS: Mr. Gama is a very pleasant 59-year-old gentleman. He has history of dissection of apparently the abdominal aorta and coronary artery disease. He recently has been having increasing amounts of chest pain and pressure. Cardiac catheterization was planned and was being arranged. However, the patient had an episode of shortness of breath and chest tightness this morning and was brought to the emergency room on an emergency basis, having shortness of breath, he got better with medication including Lovenox. Recent stress test revealed scar of the inferolateral wall, ejection fraction reduced to 30%. Catheterization had been recommended to this gentleman. PAST MEDICAL HISTORY: 1. Dissection of the abdominal aorta, had been sent to [facility] for that. He was treated medically. 2. Hypertension. 3. Coronary artery disease. MEDICATIONS: At home; 1. Carvedilol 12.5 mg twice a day. 2. Isosorbide 30 mg a day. 3. Procardia XL 90 mg a day. 4. Pantoprazole. 5. Aspirin. 6. Atorvastatin. ALLERGIES: NONE KNOWN. SOCIAL HISTORY: He does not use tobacco or alcohol. Also has a daughter in the room, she is very supportive of him, very helpful. PHYSICAL EXAMINATION: GENERAL: This is a pleasant 59-year-old gentleman, resting comfortably, in no distress. VITAL SIGNS: Blood pressure 167/83, pulse 75 and regular. LUNGS: Clear. CARDIAC: Normal S1, normal S2. There is no murmur, rub, or gallop. ABDOMEN: Soft and nontender. EXTREMITIES: Warm and dry. No clubbing. No cyanosis or edema. PERTINENT LABORATORY DATA: Sodium is 139, potassium is 4.5. Creatinine is 1.6, which is near his baseline. Cholesterol most recently in the chart was 130, total; LDL is 60. EKG did not show any acute changes. Initial computer reading was an acute anterior [place], but it does not show evidence of that. It looks more like early repolarization. ASSESSMENT: 1. Unstable angina. 2. Coronary artery disease. 3. History of dissection of the abdominal aorta. 4. Hypertension. PLAN: 1. Continue medicines for blood pressure. 2. Proceed to cardiac catheterization tomorrow. Discussed risks, stroke, heart attack, iodine allergy, loss of blood supply to leg or kidney, stent thrombosis, stent restenosis. He understands and wishes to proceed. Dr. Nava will see the patient tomorrow morning. Job ID: [id number]
[2020-04-22] MEDS: Atorvastatin Calcium 40 MG TAB PO SCH (20:05)
[2020-04-22] MEDS ORDERED: Enoxaparin Sodium 30 MG/0.3 ML SYRINGE SC SCH (21:00)
[2020-04-22] MEDS: Nitroglycerin 2% Ointment 1 INCH/1 GM Packet TOP SCH (23:23)
[2020-04-23] MEDS ORDERED: Enoxaparin Sodium 100 MG/ML SYRINGE SC SCH
[2020-04-23 04:40] LABS: #Basophils 0.1 thou/uL (0.0-0.2); #Eosinphils 0.3 thou/uL (0.0-0.7); #Lymphocytes 1.7 thou/uL (1.20-3.40); #Monocytes 0.6 thou/uL (0.11-0.59); %Basophils 0.9 % (0.0-1.0); %Eosinophils 5.1 % (0.0-10.0); %Lymphocytes 25.2 % (21.0-51.0); %Neutrophils 59.8 % (42.0-75.0); Hemoglobin 13.2 g/dL (14.0-18.0); Mean Corpuscular HGB CONC 33.2 g/dL (32.0-36.0); Mean Corpuscular Hemoglobin 30.9 pg (27.0-31.0); Mean Corpuscular Volume 93.1 fL (78.0-98.0); Mean Platelet Volume 8.5 fL (7.4-10.4); Platelet Count 183 thou/uL (130-400); RBC Distribution Width 12.6 % (11.5-14.5); Red Blood Cell (RBC) Count 4.26 mill/uL (4.70-6.10); White Blood Cell (WBC) Count 6.7 thou/uL (4.8-10.8)
[2020-04-23 05:01] LABS: ALT (SGPT) 20 U/L (8-55); AST (SGOT) 17 U/L (5-34); Albumin 3.6 g/dL (3.4-4.8); Alkaline Phosphatase 77 U/L (40-110); Anion Gap 12 mmol/L (10-20); BUN (Urea Nitrogen) 18 mg/dL (8.4-25.7); Bilirubin, Total 0.5 mg/dL (0.2-1.2); Calc. Creatinine Clearance 63 mL/min (70-130); Calcium 8.7 mg/dL (7.8-10.44); Carbon Dioxide 24 mmol/L (23-31); Chloride 105 mmol/L (98-107); Globulin 2.7 g/dL (2.4-3.5); Glucose 92 mg/dL (80-115); Potassium 3.6 mmol/L (3.5-5.1); Protein, Total 6.3 g/dL (5.8-8.1); Sodium 137 mmol/L (136-145)
[2020-04-23] MEDS: Carvedilol 6.25 MG TAB PO SCH ×2 (05:09→17:24)
[2020-04-23] MEDS: Famotidine 20 MG TAB PO SCH (05:10)
[2020-04-23] MEDS: NIFEdipine XL 90 MG TAB PO SCH (05:10)
[2020-04-23 05:15] LABS: SARS-CoV-2 PCR by NAA Not Detected (NotDetected)
[2020-04-23] MEDS ORDERED: Sodium Chloride 0.9% 1,000 ML IV SCH (06:00)
[2020-04-23] MEDS ORDERED: NIFEdipine XL 60 MG TAB PO SCH (06:00)
[2020-04-23] MEDS ORDERED: hydrALAZINE 20 MG/ML VIAL SLOW IVP SCH (06:30)
[2020-04-23] MEDS: Nitroglycerin 2% Ointment 1 INCH/1 GM Packet TOP SCH ×2 (08:46→20:18)
[2020-04-23] MEDS ORDERED: Aspirin 81 mg Enteric Coated Tablet PO SCH (09:00)
[2020-04-23] MEDS ORDERED: Lidocaine 1% (PF) 30 ML VIAL ONE (10:40)
[2020-04-23] MEDS ORDERED: Fentanyl 100 MCG/2 ML VIAL ONE (11:08)
[2020-04-23] MEDS ORDERED: Midazolam HCl 2 mg/2 ml Vial ONE (11:08)
[2020-04-23] MEDS ORDERED: Atropine Sulfate 1 mg/10 ml Syringe ONE (11:08)
[2020-04-23] MEDS ORDERED: Nitroglycerin 100MG/250ML BOT 250 ML ONE (11:25)
[2020-04-23] MEDS ORDERED: Heparin 10,000 UNITS/ 10 ML VIAL ONE (11:25)
[2020-04-23] MEDS ORDERED: Verapamil 5 MG/2 ML VIAL ONE (11:25)
[2020-04-23] MEDS ORDERED: TICAGRELOR 90 MG TABLET ONE (12:06)
[2020-04-23] MEDS ORDERED: Nitroglycerin 0.4 MG TAB (25 Tab Bottle) SL PRN (12:28)
[2020-04-23] MEDS ORDERED: Morphine 2 MG/ML VIAL SLOW IVP PRN (12:28)
[2020-04-23] MEDS ORDERED: Sodium Chloride 0.9% 500 ML IV SCH (12:30)
--- NOTE | 2020-04-23 13:08 | PQF ---
CLINICAL DOCUMENTATION CLARIFICATION FORM: Dear Dr. Miner Date: 04/23/20 Please exercise your independent, professional judgment in responding to the clarification form. Clinical indicators are provided on the bottom of this form for your review. Please check appropriate box(es): HEART FAILURE: A. ACUITY [ ] Acute [ ] Acute on Chronic [ ] Chronic B. TYPE: [ ] Systolic / HFrEF [ ] Diastolic / HFpEF [ ] Combined Systolic / Diastolic [ ] Hypertensive Heart and Kidney disease [ ] Hypertensive Heart Disease [ ] Hypertensive Kidney Disease [ ] Other diagnosis [ ] Unable to determine In addition, please specify: Present on Admission (POA): [ ] Yes [ ] No [ ] Unable to determine For continuity of documentation, please document condition throughout progress notes and discharge summary. Thank You. To be completed by CDI/Coding staff for physician review: CLINICAL INDICATORS - SIGNS / SYMPTOMS / LABS / RESULTS AND LOCATION IN EMR H&P ([facility] CONGESTIVE HEART FAILURE WITH SUSPECTED EJECTION FRACTION OF 30%." BNP 04/22: 361.0 RISKS FACTORS / RESULTS AND LOCATION IN EMR H/O HTN (H&P) H/O CAD AND LA (H&P) TREATMENTS / RESULTS AND LOCATION IN EMR CARDIOLOGY CONSULT C[facility] (04/23) CDS Signature: Yolande Ahn RN Phone #: [phone] Date: 04/23/20 This is a permanent part of the Medical Record [facility]
[2020-04-23] MEDS ORDERED: Iopamidol 370 76% 100 ML VIAL ONE (13:58)
[2020-04-23] MEDS ORDERED: Iopamidol 370 76% 50 ML VIAL FS ONE (13:58)
--- NOTE | 2020-04-23 17:26 | PDOC.HOSPP ---
- Subjective Encounter Date: 04/23/20 Encounter Time: 08:00 Subjective: Seen for follow-up for unstable angina. Denies chest pain at this time. - Objective Vital Signs & Weight: Vital Signs (12 hours) Temp Pulse Resp BP Pulse Ox 04/23/20 08:00 94 L 04/23/20 07:58 97.6 F 78 17 167/76 H 94 L 04/23/20 07:39 76 144/72 H 04/23/20 06:05 184/85 H Weight Weight 208 lb I&O: 04/22/20 04/23/20 04/24/20 06:59 06:59 06:59 Intake Total 240 720 Balance 240 720 Result Diagrams: 04/23/20 04:13 04/23/20 04:13 Additional Labs: Labs and MAR reviewed by me EKG Reviewed by me: Yes (Telemetry shows normal sinus rhythm) Hospitalist ROS - Review of Systems Cardiovascular: denies: chest pain, palpitations, orthopnea, paroxysmal noc. dyspnea, edema, light headedness Gastrointestinal: denies: nausea, vomiting, abdominal pain, diarrhea, constipation, melena, hematochezia - Medication Medications: Active Medications Generic Name Dose Route Start Last Admin Trade Name Freq PRN Reason Stop Dose Admin Atorvastatin Calcium 80 mg 04/22/20 21:00 04/22/20 20:05 Atorvastatin Calcium 40 Mg Tab PO 80 mg HS ANA LUISA Administration Carvedilol 12.5 mg 04/23/20 08:00 04/23/20 05:09 Carvedilol 6.25 Mg Tab PO 12.5 mg BID-WM ANA LUISA Administration Famotidine 20 mg 04/23/20 09:00 04/23/20 05:10 Famotidine 20 Mg Tab PO 20 mg DAILY ANA LUISA Administration Nifedipine 90 mg 04/23/20 06:00 04/23/20 05:10 Nifedipine Xl 90 Mg Tab PO 90 mg 0600 ANA LUISA Administration Nitroglycerin 1 inch 04/22/20 21:00 04/23/20 08:46 Nitroglycerin 2% Ointment 1 Inch/1 Gm Packet TOP Not Given BID ANA LUISA Pantoprazole Sodium 40 mg 04/23/20 09:00 04/23/20 05:10 Pantoprazole 40 Mg Tab PO 40 mg DAILY ANA LUISA Administration Hospitalist Exam Vitals: Vital Signs (12 hours) Temp Pulse Resp BP Pulse Ox 04/23/20 08:00 94 L 04/23/20 07:58 97.6 F 78 17 167/76 H 94 L 04/23/20 07:39 76 144/72 H 04/23/20 06:05 184/85 H Weight Weight 208 lb General - other findings: Obese ENT: no oropharyngeal lesions Neck: supple Heart: RRR Respiratory: CTAB Gastrointestinal: soft, non-tender Skin: no lesions Psychiatric: normal affect, normal behavior Hosp A/P (1) Unstable angina Status: Acute (2) Chronic systolic CHF (congestive heart failure), NYHA class 2 Code(s): I50.22 - CHRONIC SYSTOLIC (CONGESTIVE) HEART FAILURE Status: Chronic Plan: Present on admission (3) Hypertension Code(s): I10 - ESSENTIAL (PRIMARY) HYPERTENSION Status: Chronic - Plan Plan for cath today. Congestive heart failure appears to be stable. Monitor vital signs and titrate antihypertensives as needed.
[2020-04-23] MEDS: TICAGRELOR 90 MG TABLET PO SCH (20:17)
[2020-04-23] MEDS: Atorvastatin Calcium 40 MG TAB PO SCH (20:17)
[2020-04-24 04:06] LABS: #Eosinphils 0.2 thou/uL (0.0-0.7); #Lymphocytes 1.1 thou/uL (1.20-3.40); #Monocytes 0.7 thou/uL (0.11-0.59); #Neutrophils 6.6 thou/uL (1.40-6.50); %Basophils 0.1 % (0.0-1.0); %Eosinophils 2.8 % (0.0-10.0); %Lymphocytes 12.7 % (21.0-51.0); %Monocytes 7.6 % (0.0-10.0); %Neutrophils 76.8 % (42.0-75.0); Hemoglobin 14.4 g/dL (14.0-18.0); Mean Corpuscular HGB CONC 33.9 g/dL (32.0-36.0); Mean Corpuscular Hemoglobin 31.1 pg (27.0-31.0); Mean Corpuscular Volume 91.9 fL (78.0-98.0); Mean Platelet Volume 8.4 fL (7.4-10.4); Platelet Count 196 thou/uL (130-400); RBC Distribution Width 12.6 % (11.5-14.5); Red Blood Cell (RBC) Count 4.63 mill/uL (4.70-6.10); White Blood Cell (WBC) Count 8.6 thou/uL (4.8-10.8)
[2020-04-24 04:22] LABS: ALT (SGPT) 20 U/L (8-55); AST (SGOT) 19 U/L (5-34); Albumin 3.8 g/dL (3.4-4.8); Alkaline Phosphatase 95 U/L (40-110); Anion Gap 13 mmol/L (10-20); BUN (Urea Nitrogen) 14 mg/dL (8.4-25.7); Bilirubin, Total 0.7 mg/dL (0.2-1.2); Calc. Creatinine Clearance 71 mL/min (70-130); Calcium 8.9 mg/dL (7.8-10.44); Carbon Dioxide 24 mmol/L (23-31); Chloride 105 mmol/L (98-107); Globulin 2.8 g/dL (2.4-3.5); Glucose 86 mg/dL (80-115); Potassium 3.5 mmol/L (3.5-5.1); Protein, Total 6.6 g/dL (5.8-8.1); Sodium 138 mmol/L (136-145)
[2020-04-24] MEDS: NIFEdipine XL 90 MG TAB PO SCH (05:16)
[2020-04-24] MEDS: Carvedilol 6.25 MG TAB PO SCH ×2 (08:17→17:28)
[2020-04-24] MEDS: Famotidine 20 MG TAB PO SCH (08:17)
[2020-04-24] MEDS: TICAGRELOR 90 MG TABLET PO SCH (08:18)
[2020-04-24] MEDS: Nitroglycerin 2% Ointment 1 INCH/1 GM Packet TOP SCH (08:18)
[2020-04-24] MEDS ORDERED: Valsartan 80 MG TAB PO SCH (09:00)
[2020-04-24] MEDS ORDERED: Aspirin Chewable 81 MG TAB PO SCH (09:00)
[2020-04-24] MEDS ORDERED: Insulin Regular 300 UNITS/3 ML VIAL ONE (10:22)
--- NOTE | 2020-04-24 13:09 | PDOC.CPN ---
- Subjective Date: 04/24/20 Time: 13:04 Interval history: He is doing well. He has not had more chest pain and breathing feels better. No issues with wrist or right groin. - Review of Systems General: denies: fever/chills, weight/appetite/sleep changes, night sweats, fatigue Respiratory: denies: cough, congestion, shortness of breath, exercise intolerance Cardiovascular: denies: chest pain, palpitation, edema, paroxysmal nocturnal dyspnea, orthopnea Gastrointestinal: denies: nausea, vomiting, diarrhea, constipation, abd pain, GI bleeding Musculoskeletal: denies: pain, tenderness, stiffness, swelling, arthritis/arthralgias Neurological: denies: numbness, syncope, seizure, weakness - Objective Allergies/Adverse Reactions: Allergies Allergy/AdvReac Type Severity Reaction Status Date / Time No Known Drug Allergies Allergy Verified 05/31/19 17:10 Visit Medications: Current Medications Acetaminophen (Acetaminophen 325 Mg Tab) 650 mg PO Q4H PRN PRN Reason: Headache/Fever/Mild Pain (1-3) Aspirin (Aspirin Chewable 81 Mg Tab) 81 mg PO DAILY [facility] Last Admin: 04/24/20 08:17 Dose: 81 mg Documented by: Atorvastatin Calcium (Atorvastatin Calcium 40 Mg Tab) 80 mg PO [facility] Last Admin: 04/23/20 20:17 Dose: 80 mg Documented by: Carvedilol (Carvedilol 6.25 Mg Tab) 12.5 mg PO BID-[facility] Last Admin: 04/24/20 08:17 Dose: 12.5 mg Documented by: Famotidine (Famotidine 20 Mg Tab) 20 mg PO DAILY [facility] Last Admin: 04/24/20 08:17 Dose: 20 mg Documented by: Morphine Sulfate (Morphine 2 Mg/Ml Vial) 2 mg SLOW IVP Q4H PRN PRN Reason: Moderate Chest Pain (4-6) Nifedipine (Nifedipine Xl 90 Mg Tab) 90 mg PO 0600 [facility] Last Admin: 04/24/20 05:16 Dose: 90 mg Documented by: Nitroglycerin (Nitroglycerin 2% Ointment 1 Inch/1 Gm Packet) 1 inch TOP BID [facility] Last Admin: 04/24/20 08:18 Dose: Not Given Documented by: Nitroglycerin (Nitroglycerin 0.4 Mg Tab (25 Tab Bottle)) 0.4 mg SL Q5MIN PRN PRN Reason: Chest Pain Ondansetron HCl (Ondansetron Odt 4 Mg Tab) 4 mg PO Q6H PRN PRN Reason: Nausea/Vomiting Pantoprazole Sodium (Pantoprazole 40 Mg Tab) 40 mg PO DAILY [facility] Last Admin: 04/24/20 08:18 Dose: 40 mg Documented by: Ticagrelor (Ticagrelor 90 Mg Tablet) 90 mg PO BID [facility] Last Admin: 04/24/20 08:18 Dose: 90 mg Documented by: Valsartan (Valsartan 80 Mg Tab) 80 mg PO DAILY [facility] Last Admin: 04/24/20 08:17 Dose: 80 mg Documented by: Vital Signs & Weight: Vital Signs Temp Pulse Pulse Pulse Resp BP BP 04/24/20 10:08 80 84 171/81 H 187/86 H 04/24/20 08:40 74 04/24/20 08:00 04/24/20 07:47 98.0 F 75 18 04/24/20 03:47 98.2 F 75 18 BP Pulse Ox 04/24/20 10:08 04/24/20 08:40 139/84 04/24/20 08:00 95 04/24/20 07:47 189/81 H 95 04/24/20 03:47 171/84 H 97 Weight 208 lb - Physical Exam General: alert & oriented x3 HEENT: mucus membranes moist Neck: supple neck Cardiac: regular rate and rhythm Lungs: clear to auscultation Neuro: grossly intact, no lateralizing findings Abdomen: active bowel sounds Extremities: no edema Skin: clear Musculoskeletal: no pain - Labs Result Diagrams: 04/24/20 03:47 04/24/20 03:47 Troponin/CKMB Troponin I 0.026 ng/mL (< 0.028) 04/22/20 18:00 - Telemetry Sinus rhythms and dysrhythmias: sinus rhythm - Assessment/Plan Assessment/Plan: 1. NSTEMI 2. CAD, s/p PCI to LCx. 3. Residual distal LAD disease. 4. Non dominant RCA 5. Ischemic CM mildly reduced Ef at 45-50% on Ventriculogram. PLAN: - Continue ASA,Brilinta. - Statin, BB,ARB. - May discharge home - Follow up in 4 wks.
[2020-04-24 16:18] VITALS: BP 116/69; TEMP 98.9
--- NOTE | 2020-04-24 16:44 | PDOC.DS.DS ---
Provider Date of Admission: 04/22/20 13:56 Date of Discharge: 04/24/20 Admitting Provider: Mariluz Metz MD Consultations: Cardiology (Dr. Rausch) Primary Care Physician: Unknown Course Hospital Course: Discharge diagnosis: 1. Unstable angina 2. Hyperkalemia 3. Chronic kidney disease stage III 4. COVID-19 test negative Hospital course: Patient is a pleasant 59-year-old gentleman who was admitted to the hospital on April 22, 2020 for unstable angina. He was monitored on telemetry. He was seen by cardiology service. He underwent coronary angiography, and was found to have occluded right Cl. He also had small nondominant RCA, severely diseased and severe distal LAD disease. Severe mid left circumflex disease status post PCI to mid LCx with a 2.5 x 32 mm Synergy drug-eluting stent. EF was 50%. He should be on dual antiplatelet therapy for 1 year. His chest pain resolved, and he is being discharged home in a stable condition. Many thanks for allowing me to participate in your patient's care. Please feel free to contact me with any questions or concerns. Discharge destination: Home Total amount of time spent coordinating this discharge: 32 minutes Resuscitation Status: 04/22/20 15:52 Resuscitation Status Routine Resuscitation Status: FULL: Full Resuscitation Lab Results: 04/24/20 03:47 04/24/20 03:47 Abnormal Lab Results - Last 48 hrs 04/23/20 04:13: Creatinine 1.64 H 04/23/20 04:13: RBC 4.26 L, Hgb 13.2 L, Hct 39.6 L, Monocytes # 0.6 H 04/24/20 03:47: Creatinine 1.45 H 04/24/20 03:47: RBC 4.63 L, MCH 31.1 H, Neutrophils % 76.8 H, Lymphocytes % 12.7 L, Neutrophils # 6.6 H, Lymphocytes # 1.1 L, Monocytes # 0.7 H Vitals: Vital Signs (12 hours) Temp Pulse Pulse Pulse Resp BP BP 04/24/20 16:00 98.9 F 78 16 04/24/20 12:00 98.1 F 76 16 04/24/20 10:08 80 84 171/81 H 187/86 H 04/24/20 08:40 74 04/24/20 08:00 04/24/20 07:47 98.0 F 75 18 BP Pulse Ox 04/24/20 16:00 116/69 96 04/24/20 12:00 153/82 H 96 04/24/20 10:08 04/24/20 08:40 139/84 04/24/20 08:00 95 04/24/20 07:47 189/81 H 95 Weight Weight 208 lb Physical Exam: The patient was seen and examined on the day of discharge. Patient denies chest pain or shortness of breath. Vital signs are stable. S1 and S2 are heard. Lungs are clear to auscultation bilaterally. Problem (1) Unstable angina Status: Acute (2) Chronic systolic CHF (congestive heart failure), NYHA class 2 Code(s): I50.22 - CHRONIC SYSTOLIC (CONGESTIVE) HEART FAILURE Status: Chronic (3) Hypertension Code(s): I10 - ESSENTIAL (PRIMARY) HYPERTENSION Status: Chronic Plan Prescriptions: Ticagrelor [Brilinta] 90 mg PO BID #60 tab Valsartan [Diovan] 80 mg PO DAILY #30 tab Home Medications: Medication Instructions Recorded Confirmed Type Atorvastatin Calcium 80 mg PO DAILY 04/22/20 04/22/20 History Carvedilol [Coreg] 12.5 mg PO BID 04/22/20 04/22/20 History Cyanocobalamin/Folic AC/Vit B6 1 tablet PO DAILY 04/22/20 04/22/20 History [Folbic] NIFEdipine [Nifedipine ER] 90 mg PO DAILY 04/22/20 04/22/20 History Pantoprazole [Protonix] 40 mg PO DAILY 04/22/20 04/22/20 History Aspirin Chewable [Aspirin Chewable 81 mg PO DAILY tab 04/24/20 Rx Tablet] Ticagrelor [Brilinta] 90 mg PO BID #60 tab 04/24/20 Rx Valsartan [Diovan] 80 mg PO DAILY #30 tab 04/24/20 Rx Allergies: No Known Drug Allergies Allergy (Verified 05/31/19 17:10) PER ER REPORT Referrals: Cardiac Rehab - [facility] [Outside] - 7 Days (Your doctor has ordered outpatient cardiac rehab for you to begin within 1-2 weeks after you go home from the hospital. The location nearest to you is the [facility]. We will call you in 3-5 days to get you scheduled for your evaluation. If you do not receive a call, please reach out to us at [phone] and request an appointment.) Elizabeth Cook APRN [[facility] Professional] - 04/30/20 1:00 pm (t) Koko Nava MD [Active] - 3-4 Weeks Disposition: HOME Quality CORE MEASURES:: N/A
== END 2020-04-24 17:35 | disposition home or self-care (01) | DRG 247 ==
LOC: ERS 10:05 → 2NO 13:56
PROVIDERS: ADMIT Internal Medicine; ATTEND Internal Medicine
PROC: 027034Z Dilation of Coronary Artery, One Artery with Drug-eluting Intraluminal Device, Percutaneous Approach (ICD-10-PCS; principal; 2020-04-23)
PROC: 4A023N7 Measurement of Cardiac Sampling and Pressure, Left Heart, Percutaneous Approach (ICD-10-PCS; 2020-04-23)
PROC: B2111ZZ Fluoroscopy of Multiple Coronary Arteries using Low Osmolar Contrast (ICD-10-PCS; 2020-04-23)
DX: I21.4 Non-ST elevation (NSTEMI) myocardial infarction (principal); I50.22 Chronic systolic (congestive) heart failure; I13.0 Hypertensive heart and chronic kidney disease with heart failure and stage 1 through stage 4 chronic kidney disease, or unspecified chronic kidney disease; I25.5 Ischemic cardiomyopathy; E87.5 Hyperkalemia; E78.5 Hyperlipidemia, unspecified; Z20.822 Contact with and (suspected) exposure to COVID-19; I25.110 Atherosclerotic heart disease of native coronary artery with unstable angina pectoris; I25.2 Old myocardial infarction; Z95.5 Presence of coronary angioplasty implant and graft
CPT/HCPCS: 36415; 71045; 76942; 80053; 83690; 83880; 84484; 85025; 85347; 85610; 87635; 92928; 93005; 93010; 93458; 93798; 94760; 96372; 96374; 96375; 99152; 99153; C1874; C9600; J0461; J1644; J1650; J1815; J2001; J2250; J2270; J2405; J3010; J3480; Q9967; U0003; U0005

== ENCOUNTER 2020-05-01 10:35 | Emergency (ER) | payer OTHER ==
[2020-05-01] MEDS ORDERED: Aspirin 325 MG TAB ONE (10:52)
--- NOTE | 2020-05-01 11:02 | RAD ---
PORTABLE CHEST 1 VIEW: Date: 05/01/2020 Time: 1054 hours HISTORY: Dyspnea. COMPARISON: 04/22/2020. FINDINGS: The heart size is borderline. The lungs are well expanded without lobar consolidation, pneumothoraces , ester pulmonary edema, or pleural effusions. IMPRESSION: No acute process. POS: OFF
[2020-05-01 11:10] LABS: #Basophils 0.1 thou/uL (0.0-0.2); #Eosinphils 0.3 thou/uL (0.0-0.7); #Lymphocytes 1.2 thou/uL (1.20-3.40); #Monocytes 0.6 thou/uL (0.11-0.59); #Neutrophils 5.2 thou/uL (1.40-6.50); %Eosinophils 4.3 % (0.0-10.0); %Lymphocytes 16.3 % (21.0-51.0); %Monocytes 8.4 % (0.0-10.0); Hemoglobin 13.9 g/dL (14.0-18.0); Mean Corpuscular HGB CONC 33.7 g/dL (32.0-36.0); Mean Corpuscular Volume 91.9 fL (78.0-98.0); Platelet Count 243 thou/uL (130-400); RBC Distribution Width 12.6 % (11.5-14.5); Red Blood Cell (RBC) Count 4.47 mill/uL (4.70-6.10); White Blood Cell (WBC) Count 7.4 thou/uL (4.8-10.8)
[2020-05-01] MEDS ORDERED: Iopamidol-370 76% 500 ML 1 ML ONE (11:14)
[2020-05-01 11:32] LABS: ALT (SGPT) 20 U/L (8-55); AST (SGOT) 18 U/L (5-34); Alkaline Phosphatase 82 U/L (40-110); Anion Gap 13 mmol/L (10-20); BUN (Urea Nitrogen) 20 mg/dL (8.4-25.7); Bilirubin, Total 0.6 mg/dL (0.2-1.2); CK (CPK) 139 U/L (30-200); Calc. Creatinine Clearance 0 mL/min (70-130); Carbon Dioxide 27 mmol/L (23-31); Chloride 101 mmol/L (98-107); Globulin 2.6 g/dL (2.4-3.5); Glucose 98 mg/dL (80-115); Lipase 23 U/L (8-78); Potassium 4.4 mmol/L (3.5-5.1); Protein, Total 6.6 g/dL (5.8-8.1); Sodium 137 mmol/L (136-145)
--- NOTE | 2020-05-01 11:32 | CT ---
CT PULMONARY ANGIOGRAM WITH IV CONTRAST AND 3D POST PROCESSING: HISTORY: Dyspnea, chest pain, recent surgery. Tachycardia, hypertension. FINDINGS: There is good contrast opacification of the pulmonary arterial vasculature without filling defects to suggest pulmonary embolism. There are vascular calcifications without evidence of aneurysmal dilata tion of the thoracic aorta. There is a 1 cm right paratracheal lymph node is present. No pericardia l effusion is seen. There are tiny bilateral effusions, right larger than left. No pneumothoraces, lobar consolidation, lung masses, or nodules identified. There are degenerative changes in the spine . IMPRESSION: No CT evidence of pulmonary embolism. POS: OFF
[2020-05-01 11:53] LABS: CKMB 5.6 ng/mL (0-6.6)
[2020-05-01 12:14] LABS: Bilirubin Negative (Negative); Blood, Urine Negative (Negative); Clarity Clear (Clear); Glucose, Urine (Dipstick) Normal (Negative); Ketone, Urine Negative (Negative); Leukocyte Negative Leu/uL (Negative); Nitrite Negative (Negative); Protein, Urine (Dipstick) Negative (Neg-Trace); Specific Gravity, Urine 1.022 (1.002-1.036); Urobilinogen Normal mg/dL (Less than 2)
[2020-05-01] MEDS ORDERED: Furosemide 40 MG/4 ML VIAL ONE (12:31)
[2020-05-01 13:08] LABS: Troponin I 0.031 ng/mL (< 0.028)
== END 2020-05-01 13:45 | disposition home or self-care (01) ==
LOC: ERS 10:35
DX: I11.0 Hypertensive heart disease with heart failure (principal); I50.9 Heart failure, unspecified; E78.5 Hyperlipidemia, unspecified; I25.2 Old myocardial infarction; Z99.2 Dependence on renal dialysis; Z87.891 Personal history of nicotine dependence; Z79.899 Other long term (current) drug therapy; Z79.01 Long term (current) use of anticoagulants
CPT/HCPCS: 36415; 71045; 71275; 80053; 81003; 82550; 82553; 83690; 83880; 84484; 85025; 85379; 93005; 96374; J1940; Q9967

== ENCOUNTER 2020-05-04 06:45 | Inpatient (IN) | payer BC, OTHER ==
[2020-05-04 07:05] LABS: #Eosinphils 0.4 thou/uL (0.0-0.7); #Lymphocytes 1.1 thou/uL (1.20-3.40); #Monocytes 0.7 thou/uL (0.11-0.59); #Neutrophils 8.3 thou/uL (1.40-6.50); %Basophils 0.5 % (0.0-1.0); %Eosinophils 3.7 % (0.0-10.0); %Lymphocytes 10.1 % (21.0-51.0); %Monocytes 6.8 % (0.0-10.0); %Neutrophils 79.1 % (42.0-75.0); Hemoglobin 14.2 g/dL (14.0-18.0); Mean Corpuscular Hemoglobin 31.2 pg (27.0-31.0); Mean Corpuscular Volume 91.8 fL (78.0-98.0); Platelet Count 248 thou/uL (130-400); RBC Distribution Width 12.6 % (11.5-14.5); Red Blood Cell (RBC) Count 4.54 mill/uL (4.70-6.10); White Blood Cell (WBC) Count 10.5 thou/uL (4.8-10.8)
[2020-05-04] MEDS ORDERED: Furosemide 40 MG/4 ML VIAL ONE ×2 (07:06→07:10)
[2020-05-04] MEDS ORDERED: Lisinopril 10 MG TAB ONE ×2 (07:06→07:16)
[2020-05-04] MEDS ORDERED: NIFEdipine XL 60 MG TAB PO SCH (07:15)
[2020-05-04 07:28] LABS: ALT (SGPT) 19 U/L (8-55); AST (SGOT) 20 U/L (5-34); Albumin 3.9 g/dL (3.4-4.8); Alkaline Phosphatase 96 U/L (40-110); Anion Gap 12 mmol/L (10-20); BUN (Urea Nitrogen) 21 mg/dL (8.4-25.7); Bilirubin, Total 0.6 mg/dL (0.2-1.2); Calc. Creatinine Clearance 0 mL/min (70-130); Carbon Dioxide 28 mmol/L (23-31); Chloride 101 mmol/L (98-107); Globulin 3.2 g/dL (2.4-3.5); Glucose 109 mg/dL (80-115); Potassium 4.3 mmol/L (3.5-5.1); Protein, Total 7.1 g/dL (5.8-8.1); Sodium 137 mmol/L (136-145)
--- NOTE | 2020-05-04 07:30 | RAD ---
XR Chest 1 View Portable History: Shortness of breath Comparison: Chest radiograph 3 days prior Findings: Heart size is enlarged. Worsening pulmonary edema. Small right pleural effusion. Increased subpleural fat left hemithorax. Impression: Worsening pulmonary edema.
[2020-05-04 07:49] LABS: CKMB 3.3 ng/mL (0-6.6)
[2020-05-04] MEDS ORDERED: Labetalol HCl 100 MG/20 ML VIAL ONE (07:54)
[2020-05-04] MEDS ORDERED: Acetaminophen 325 MG TAB PO PRN (08:59)
[2020-05-04] MEDS ORDERED: Ondansetron PF 4 MG/2 ML Vial IVP PRN (08:59)
[2020-05-04] MEDS ORDERED: hydrALAZINE 20 MG/ML VIAL SLOW IVP PRN (09:06)
--- NOTE | 2020-05-04 09:14 | PDOC.HHP ---
Hospitalist SANIA SOB History of Present Illness: Patient is 59-year-old male with PMH of chronic systolic CHF, CAD, HTN, and CKD III who presents to the ED with shortness of breath that started last night around 10:00 PM. He also reports orthopnea and some leg swelling. He denies chest pain, PND, or cough. Patient was discharged from here on 04/24/2020 after he was admitted for NSTEMI. LHC done during that admission showed occluded right CI, severely diseased small nondominant RCA, severe distal LDA disease, severe mid LCx disease, he underwent PCI to mid LCx with PHYLLIS. EF: 50%. He was also seen here at the ED on 05/01 for shortness of breath, this was thought to be due to CHF, PE was ruled out, he received a dose of IV Lasix, he was discharged after his symptoms were improved. Patient states he has been compliant with all his medications including his aspirin and Brilinta. ED Course: Initial BP in the ED,201/130, this improved after he received labetalol IV x1, Nifedipine, lisinopril, Isosorbide and IV Lasix x1. CXR showed worsening of pulmonary edema. Allergies/Adverse Reactions: Allergy/AdvReac Type Severity Reaction Status Date / Time No Known Drug Allergies Allergy Verified 05/31/19 17:10 Home Medications: Medication Instructions Recorded Confirmed Type Atorvastatin Calcium 80 mg PO DAILY 04/22/20 04/22/20 History Carvedilol [Coreg] 12.5 mg PO BID 04/22/20 04/22/20 History Cyanocobalamin/Folic AC/Vit B6 1 tablet PO DAILY 04/22/20 04/22/20 History [Folbic] NIFEdipine [Nifedipine ER] 90 mg PO DAILY 04/22/20 04/22/20 History Pantoprazole [Protonix] 40 mg PO DAILY 04/22/20 04/22/20 History Aspirin Chewable [Aspirin Chewable 81 mg PO DAILY tab 04/24/20 Rx Tablet] Ticagrelor [Brilinta] 90 mg PO BID #60 tab 04/24/20 Rx Valsartan [Diovan] 80 mg PO DAILY #30 tab 04/24/20 Rx Past History: PMHx:chronic systolic CHF, CAD, HTN, and CKD III PSHx: Cardiac stent x2 FHx: Both parents had history of heart disease Social: He is a former smoker. He drinks alcohol occasionally. He denies drug use. Hospitalist HPI ROS Constitutional: denies: fever, chills Eyes: denies: vision change ENT: denies: throat pain Respiratory: reports: shortness of breath. denies: cough Cardiovascular: reports: orthopnea, edema. denies: chest pain, paroxysmal noc. dyspnea Gastrointestinal: denies: nausea, vomiting Genitourinary: denies: dysuria Skin: denies: rash All other systems reviewed; all pertinent +/- noted in HPI/Subj Hospitalist Exam General Appearance: NAD, awake alert Eye: PERRL ENT: moist mucosa Neck: supple, no JVD Heart: RRR, no murmur Respiratory: CTAB, no wheezes, no tachypnea Gastrointestinal: soft, non-tender, non-distended, normal bowel sounds Extremities - other findings: trace edema on the LE bilaterally Skin: no rashes Neurological: normal sensation to touch, no weakness Musculoskeletal: normal strength Psychiatric: normal affect Hospitalist Results Result Diagrams: 05/04/20 06:55 05/04/20 06:55 Lab results: Laboratory Last Values WBC 10.5 thou/uL (4.8-10.8) 05/04/20 06:55 RBC 4.54 mill/uL (4.70-6.10) L 05/04/20 06:55 Hgb 14.2 g/dL (14.0-18.0) 05/04/20 06:55 Hct 41.6 % (42.0-52.0) L 05/04/20 06:55 MCV 91.8 fL (78.0-98.0) 05/04/20 06:55 MCH 31.2 pg (27.0-31.0) H 05/04/20 06:55 MCHC 34.0 g/dL (32.0-36.0) 05/04/20 06:55 RDW 12.6 % (11.5-14.5) 05/04/20 06:55 Plt Count 248 thou/uL (130-400) 05/04/20 06:55 MPV 8.0 fL (7.4-10.4) 05/04/20 06:55 Neutrophils % 79.1 % (42.0-75.0) H 05/04/20 06:55 Lymphocytes % 10.1 % (21.0-51.0) L 05/04/20 06:55 Monocytes % 6.8 % (0.0-10.0) 05/04/20 06:55 Eosinophils % 3.7 % (0.0-10.0) 05/04/20 06:55 Basophils % 0.5 % (0.0-1.0) 05/04/20 06:55 Neutrophils # 8.3 thou/uL (1.40-6.50) H 05/04/20 06:55 Lymphocytes # 1.1 thou/uL (1.20-3.40) L 05/04/20 06:55 Monocytes # 0.7 thou/uL (0.11-0.59) H 05/04/20 06:55 Eosinophils # 0.4 thou/uL (0.0-0.7) 05/04/20 06:55 Basophils # 0.0 thou/uL (0.0-0.2) 05/04/20 06:55 Sodium 137 mmol/L (136-145) 05/04/20 06:55 Potassium 4.3 mmol/L (3.5-5.1) 05/04/20 06:55 Chloride 101 mmol/L (98-107) 05/04/20 06:55 Carbon Dioxide 28 mmol/L (23-31) 05/04/20 06:55 Anion Gap 12 mmol/L (10-20) 05/04/20 06:55 BUN 21 mg/dL (8.4-25.7) 05/04/20 06:55 Creatinine 1.60 mg/dL (0.7-1.3) H 05/04/20 06:55 Estimated GFR (MDRD) 44 05/04/20 06:55 Glucose 109 mg/dL (80-115) 05/04/20 06:55 Calcium 9.0 mg/dL (7.8-10.44) 05/04/20 06:55 Total Bilirubin 0.6 mg/dL (0.2-1.2) 05/04/20 06:55 AST 20 U/L (5-34) 05/04/20 06:55 ALT 19 U/L (8-55) 05/04/20 06:55 Alkaline Phosphatase 96 U/L (40-110) 05/04/20 06:55 CK-MB (CK-2) 3.3 ng/mL (0-6.6) 05/04/20 06:55 Troponin I 0.036 ng/mL (< 0.028) H 05/04/20 06:55 B-Natriuretic Peptide 504.9 pg/mL (0-100) H 05/04/20 06:55 Serum Total Protein 7.1 g/dL (5.8-8.1) 05/04/20 06:55 Albumin 3.9 g/dL (3.4-4.8) 05/04/20 06:55 Globulin 3.2 g/dL (2.4-3.5) 05/04/20 06:55 Albumin/Globulin Ratio 1.2 g/dL (1.2-2.2) 05/04/20 06:55 Chest x-ray Status: image reviewed by me EKG Status: image reviewed by me Additional Comments: NSR. Non-specific T wave abnormalities, occasional PVCs Hospitalist H&P A/P (1) Acute on chronic systolic CHF (congestive heart failure) Code(s): I50.23 - ACUTE ON CHRONIC SYSTOLIC (CONGESTIVE) HEART FAILURE Status: Acute Assessment and Plan: Patient has signs and symptoms of CHF exasperation. He is currently not r equiring O2 supplement. Plan: -O2 supplement as needed -strict I&O, daily weight -Lasix 20 mg iv TID -cont home meds (2) Hypertensive urgency Code(s): I16.0 - HYPERTENSIVE URGENCY Status: Acute Assessment and Plan: BP highly elevated on arrival. Patient states he is compliant with all his meds, but did not take them this morning as he was coming here. BP improved with IV and PO meds. Plan: -continue home meds -Hydralazine IV prn (3) Elevated troponin Code(s): R77.8 - OTHER SPECIFIED ABNORMALITIES OF PLASMA PROTEINS Status: Acute Assessment and Plan: likely associated with his CHF and/or demand ischemia from HTN. Patient denies chest pain. Plan: -trend troponin (4) CAD (coronary artery disease) Code(s): I25.10 - ATHSCL HEART DISEASE OF [place] CORONARY ARTERY W/O ANG PCTRS Status: Chronic Assessment and Plan: Patient had recent PCI to mid LCx with PHYLLIS. Plan: -Continue aspirin, Brilinta, Coreg, and atorvastatin (5) CKD (chronic kidney disease) stage 3, GFR 30-59 ml/min Code(s): N18.30 - CHRONIC KIDNEY DISEASE, STAGE 3 UNSPECIFIED Status: Chronic Assessment and Plan: Cr stable. Plan: -monitor -avoid nephrotoxic agents
[2020-05-04] MEDS ORDERED: Aspirin Chewable 81 MG TAB ONE (10:28)
[2020-05-04] MEDS: TICAGRELOR 90 MG TABLET PO SCH ×2 (10:35→23:12)
[2020-05-04] MEDS: Aspirin 81 mg Enteric Coated Tablet PO SCH (10:35)
[2020-05-04 11:35] LABS: Troponin I 0.033 ng/mL (< 0.028)
[2020-05-04 14:06] LABS: Troponin I 0.033 ng/mL (< 0.028)
[2020-05-04] MEDS ORDERED: Furosemide 20 MG/2 ML VIAL ONE (15:01)
[2020-05-04] MEDS: Furosemide 20 MG/2 ML VIAL SLOW IVP SCH ×2 (15:10→23:14)
[2020-05-04] MEDS: Carvedilol 6.25 MG TAB PO SCH (17:36)
[2020-05-04 22:52] LABS: SARS-CoV-2 PCR by NAA Not Detected (NotDetected)
[2020-05-04] MEDS: Atorvastatin Calcium 40 MG TAB PO SCH (23:13)
[2020-05-04 23:45] VITALS: BMI 34.2
[2020-05-05 05:41] LABS: #Basophils 0.1 thou/uL (0.0-0.2); #Eosinphils 0.3 thou/uL (0.0-0.7); #Lymphocytes 1.4 thou/uL (1.20-3.40); #Neutrophils 5.4 thou/uL (1.40-6.50); %Basophils 0.9 % (0.0-1.0); %Eosinophils 3.5 % (0.0-10.0); %Lymphocytes 17.3 % (21.0-51.0); %Monocytes 11.8 % (0.0-10.0); %Neutrophils 66.4 % (42.0-75.0); Hemoglobin 13.1 g/dL (14.0-18.0); Mean Corpuscular HGB CONC 33.5 g/dL (32.0-36.0); Mean Corpuscular Hemoglobin 30.7 pg (27.0-31.0); Mean Corpuscular Volume 91.7 fL (78.0-98.0); Mean Platelet Volume 8.4 fL (7.4-10.4); Platelet Count 233 thou/uL (130-400); RBC Distribution Width 12.6 % (11.5-14.5); Red Blood Cell (RBC) Count 4.25 mill/uL (4.70-6.10); White Blood Cell (WBC) Count 8.1 thou/uL (4.8-10.8)
[2020-05-05 05:56] LABS: Anion Gap 13 mmol/L (10-20); BUN (Urea Nitrogen) 24 mg/dL (8.4-25.7); Calc. Creatinine Clearance 59 mL/min (70-130); Calcium 9.1 mg/dL (7.8-10.44); Carbon Dioxide 29 mmol/L (23-31); Chloride 98 mmol/L (98-107); Glucose 97 mg/dL (80-115); Potassium 3.5 mmol/L (3.5-5.1); Sodium 136 mmol/L (136-145)
[2020-05-05] MEDS: NIFEdipine XL 90 MG TAB PO SCH (07:53)
[2020-05-05] MEDS: Aspirin 81 mg Enteric Coated Tablet PO SCH (07:54)
[2020-05-05] MEDS: Valsartan 80 MG TAB PO SCH (07:54)
[2020-05-05] MEDS: Carvedilol 6.25 MG TAB PO SCH ×2 (07:55→16:35)
[2020-05-05] MEDS: Enoxaparin Sodium 30 MG/0.3 ML SYRINGE SC SCH (07:56)
[2020-05-05] MEDS: Furosemide 20 MG/2 ML VIAL SLOW IVP SCH (07:58)
[2020-05-05] MEDS: TICAGRELOR 90 MG TABLET PO SCH (08:00)
--- NOTE | 2020-05-05 09:17 | PDOC.HOSPP ---
- Subjective Encounter Date: 05/05/20 Encounter Time: 12:00 Subjective: Patient feeling much better compared to when he came in. Still with some dyspnea on exertion. No shortness of breath at rest on oxygen currently. - Objective Vital Signs & Weight: Vital Signs (12 hours) Temp Pulse Resp BP BP Pulse Ox 05/05/20 07:42 98.4 F 75 18 126/76 96 05/05/20 04:00 98.1 F 61 16 142/71 H 97 05/04/20 23:59 98.1 F 80 16 149/87 H 95 Weight Admit Weight 224 lb 8 oz Weight 225 lb 8 oz I&O: 05/04/20 05/05/20 05/06/20 06:59 06:59 06:59 Intake Total 367 Output Total 400 Balance -33 Result Diagrams: 05/05/20 05:18 05/05/20 05:18 Hospitalist ROS - Review of Systems Constitutional: denies: fever, chills Respiratory: reports: SOB with excertion. denies: cough, shortness of breath Cardiovascular: denies: chest pain, palpitations Gastrointestinal: denies: nausea, vomiting, abdominal pain - Medication Medications: Active Medications Generic Name Dose Route Start Last Admin Trade Name Freq PRN Reason Stop Dose Admin Aspirin 81 mg 05/04/20 09:00 05/05/20 07:54 Aspirin 81 Mg Enteric Coated Tablet PO 81 mg Q24HR ANA LUISA Administration Atorvastatin Calcium 80 mg 05/04/20 21:00 05/04/20 23:13 Atorvastatin Calcium 40 Mg Tab PO 80 mg HS ANA LUISA Administration Carvedilol 12.5 mg 05/04/20 17:00 05/05/20 07:55 Carvedilol 6.25 Mg Tab PO 12.5 mg BID- ANA LUISA Administration Enoxaparin Sodium 30 mg 05/05/20 09:00 05/05/20 07:56 Enoxaparin Sodium 30 Mg/0.3 Ml Syringe SC 30 mg 0900 ANA LUISA Administration Furosemide 20 mg 05/04/20 15:00 05/05/20 07:58 Furosemide 20 Mg/2 Ml Vial SLOW IVP 20 mg TID ANA LUISA Administration Nifedipine 90 mg 05/05/20 09:00 05/05/20 07:53 Nifedipine Xl 90 Mg Tab PO 90 mg DAILY ANA LUISA Administration Pantoprazole Sodium 40 mg 05/05/20 09:00 05/05/20 07:55 Pantoprazole 40 Mg Tab PO 40 mg DAILY ANA LUISA Administration Sodium Chloride 10 ml 05/04/20 21:00 05/05/20 07:58 Flush - Normal Saline 10 Ml Syringe IVF 10 ml Q12HR ANA LUISA Administration Ticagrelor 90 mg 05/04/20 09:00 05/05/20 08:00 Ticagrelor 90 Mg Tablet PO 90 mg Q12HR ANA LUISA Administration Valsartan 80 mg 05/05/20 09:00 05/05/20 07:54 Valsartan 80 Mg Tab PO 80 mg DAILY ANA LUISA Administration Hospitalist Exam Vitals: Vital Signs (12 hours) Temp Pulse Resp BP BP Pulse Ox 05/05/20 07:42 98.4 F 75 18 126/76 96 05/05/20 04:00 98.1 F 61 16 142/71 H 97 05/04/20 23:59 98.1 F 80 16 149/87 H 95 Weight Admit Weight 224 lb 8 oz Weight 225 lb 8 oz General Appearance: NAD, awake alert ENT: moist mucosa Heart: RRR, no murmur, no gallops, no rubs Respiratory: CTAB, no wheezes, no rales, no ronchi Gastrointestinal: soft, non-tender, non-distended, normal bowel sounds Extremities: no edema Psychiatric: normal affect, normal behavior, A&O x 3 Hosp A/P - Plan (1) Acute on chronic systolic CHF (congestive heart failure) Code(s): I50.23 - ACUTE ON CHRONIC SYSTOLIC (CONGESTIVE) HEART FAILURE Status: Acute Assessment and Plan: Patient has signs and symptoms of CHF exasperation. He is currently not requiring O2 supplement. Recent cath with EF 45-50% Plan: -O2 supplement as needed -strict I&O, daily weight -Lasix 20 mg iv TID -cont home meds -ECHO as no recent in chart -Dr. Nava consulted (2) Hypertensive urgency Code(s): I16.0 - HYPERTENSIVE URGENCY Status: Acute Assessment and Plan: BP highly elevated on arrival. Patient states he is compliant with all his meds, but did not take them this morning as he was coming here. BP improved with IV and PO meds. Plan: -continue home meds -Hydralazine IV prn (3) Elevated troponin Code(s): R77.8 - OTHER SPECIFIED ABNORMALITIES OF PLASMA PROTEINS Status: Acute Assessment and Plan: likely associated with his CHF and/or demand ischemia from HTN. Patient denies chest pain. Plan: -trend troponin (4) CAD (coronary artery disease) Code(s): I25.10 - ATHSCL HEART DISEASE OF [place] CORONARY ARTERY W/O ANG PCTRS Status: Chronic Assessment and Plan: Patient had recent PCI to mid LCx with PHYLLIS. Plan: -Continue aspirin, Brilinta, Coreg, and atorvastatin (5) CKD (chronic kidney disease) stage 3, GFR 30-59 ml/min Code(s): N18.30 - CHRONIC KIDNEY DISEASE, STAGE 3 UNSPECIFIED Status: Chronic Assessment and Plan: Cr stable. Plan: -tele monitor- 20-30 Biventricular PVCs/minute this AM, Dr. Nava aware -avoid nephrotoxic agents -Await cardiology recommendations
--- NOTE | 2020-05-05 17:18 | CON ---
DATE OF CONSULTATION: 05/05/2020 REASON FOR CONSULTATION: Heart failure. PRIMARY CUSTOMER EXPERIENCE ANALYST: Koko Nava MD. HISTORY OF PRESENT ILLNESS: Mr. Gama is a pleasant 59-year-old white gentleman, who comes to the hospital for increased shortness of breath. He has a history of ischemic cardiomyopathy, underwent heart catheterization on the 10th of this month and was found to have severe distal LAD disease as well as small nondominant RCA which was also severely diseased and mid left circ, which received a drug-eluting stent 2.5 x 32 mm with very good results. He had done well, however, he returned with worsening shortness of breath. His EF on LV gram was about 50%, however, it was about 45% on echo before that. He comes in with worsening shortness of breath. His BNP was in the 500 range, so he was admitted and given IV Lasix. He actually feels better today after the IV Lasix. However, his creatinine did bump from 1.6 to 1.9. Cardiology has been consulted for further recommendations. On my evaluation, Mr. Gama denies any chest pain, tightness or pressure. Denies any more shortness of breath. He actually feels a lot better, close to his baseline. PAST MEDICAL HISTORY: 1. Coronary artery disease as above. 2. Ischemic cardiomyopathy, last EF of 50% on heart catheterization. However, it was lower before that on echo. 3. Abdominal aortic dissection, transferred to [place] several months ago. 4. Hypertension. OUTPATIENT MEDICATIONS: 1. Valsartan 80 mg a day. 2. Brilinta 90 mg b.i.d. 3. Pantoprazole 40 mg a day. 4. Nifedipine 90 mg a day. 5. Folbic. 6. Coreg 12.5 b.i.d. 7. Atorvastatin 80 mg a day. 8. Aspirin 81 a day. ALLERGIES: NO KNOWN DRUG ALLERGIES. SOCIAL HISTORY: Former smoker. Social alcohol use. FAMILY HISTORY: Noncontributory. REVIEW OF SYSTEMS: A 12-point review of systems was done and was found to be negative other than stated in the history of present illness. PHYSICAL EXAMINATION: VITAL SIGNS: Temperature 98.5, pulse 78, respiratory rate 18, saturating 96% on room air, blood pressure has been 120s/70s. GENERAL: Awake, alert and oriented x3, in no distress. HEENT: Normocephalic, atraumatic. NECK: Supple. LUNGS: Clear. CARDIOVASCULAR: S1, S2. No S3 or S4. There is a grade 2/6 systolic murmur at the right upper sternal border. ABDOMEN: Soft. Positive bowel sounds. EXTREMITIES: however, he had edema on admission. SKIN: Warm and dry. LABORATORY DATA: Reviewed. CBC with white count of 10; hemoglobin of 14, down to 13; platelet count of 248. Chemistries were unremarkable with a creatinine of 1.6 and GFR of 44; after Lasix, 1.9 of creatinine and GFR of 36. BNP was 504. Troponin was 0.03, 0.03, 0.03. IMAGING: CT of the thorax with contrast showed no evidence of pulmonary embolism with vascular calcifications, but no aneurysmal dilatation of the thoracic aorta. There is 1 cm paratracheal lymph node. No pericardial effusion. Only tiny bilateral effusions, right greater than left. No consolidations. No evidence of heart failure. ASSESSMENT: 1. Shortness of breath. 2. Mildly elevated BNP. 3. Ischemic cardiomyopathy, normalized ejection fraction on last evaluation. 4. Recent percutaneous coronary intervention of the left circumflex with a drug-eluting stent. PLAN: 1. We will certainly change his Brilinta to Plavix as Brilinta can make you feel short of breath, however, it will not make BNP go up. 2. We will get an echocardiogram and depending on his LV function, he may need some Lasix at home either p.r.n. or just Lasix schedule at the low oral dose. 3. Continue current doses of valsartan and beta luc. 4. We will await results of echocardiogram once it is done and depending on those results, we will decide any further therapies that he may need. 5. I hope he starts feeling a lot better once being off the Brilinta. This may just be a side effect of it. Thank you for letting us to participate in the care of your patient. We will follow. Job ID: [id number]
[2020-05-05] MEDS: Atorvastatin Calcium 40 MG TAB PO SCH (20:31)
[2020-05-06 06:11] LABS: #Basophils 0.1 thou/uL (0.0-0.2); #Eosinphils 0.4 thou/uL (0.0-0.7); #Lymphocytes 1.6 thou/uL (1.20-3.40); #Monocytes 0.9 thou/uL (0.11-0.59); #Neutrophils 4.7 thou/uL (1.40-6.50); %Basophils 0.9 % (0.0-1.0); %Eosinophils 5.3 % (0.0-10.0); %Lymphocytes 20.7 % (21.0-51.0); %Monocytes 11.3 % (0.0-10.0); %Neutrophils 61.8 % (42.0-75.0); Hemoglobin 13.7 g/dL (14.0-18.0); Mean Corpuscular HGB CONC 34.1 g/dL (32.0-36.0); Mean Corpuscular Hemoglobin 31.6 pg (27.0-31.0); Mean Corpuscular Volume 92.5 fL (78.0-98.0); Mean Platelet Volume 8.1 fL (7.4-10.4); Platelet Count 227 thou/uL (130-400); RBC Distribution Width 12.7 % (11.5-14.5); Red Blood Cell (RBC) Count 4.34 mill/uL (4.70-6.10); White Blood Cell (WBC) Count 7.6 thou/uL (4.8-10.8)
[2020-05-06 06:31] LABS: Anion Gap 13 mmol/L (10-20); BUN (Urea Nitrogen) 29 mg/dL (8.4-25.7); Calc. Creatinine Clearance 59 mL/min (70-130); Calcium 9.1 mg/dL (7.8-10.44); Carbon Dioxide 29 mmol/L (23-31); Chloride 100 mmol/L (98-107); Glucose 98 mg/dL (80-115); Potassium 3.7 mmol/L (3.5-5.1); Sodium 138 mmol/L (136-145)
--- NOTE | 2020-05-06 08:45 | PDOC.HOSPP ---
- Subjective Encounter Date: 05/06/20 Encounter Time: 11:00 Subjective: Patient denies any further shortness of breath. He has been ambulating well without any dyspnea on exertion. He is eager to go home. - Objective Vital Signs & Weight: Vital Signs (12 hours) Temp Pulse Resp BP BP Pulse Ox 05/06/20 07:31 97.8 F 67 16 164/74 H 96 05/06/20 03:00 97.7 F 66 16 143/68 H 94 L 05/06/20 00:49 97.6 F 41 L 14 150/86 H 95 Weight Admit Weight 224 lb 8 oz Weight 222 lb 8 oz I&O: 05/05/20 05/06/20 05/07/20 06:59 06:59 06:59 Intake Total 367 1400 Output Total 400 1120 Balance -33 280 Result Diagrams: 05/06/20 05:58 05/06/20 05:58 Hospitalist ROS - Review of Systems Constitutional: denies: fever, chills Respiratory: denies: cough, shortness of breath Cardiovascular: denies: chest pain, palpitations, edema Gastrointestinal: denies: nausea, vomiting, abdominal pain - Medication Medications: Active Medications Generic Name Dose Route Start Last Admin Trade Name Freq PRN Reason Stop Dose Admin Aspirin 81 mg 05/04/20 09:00 05/05/20 07:54 Aspirin 81 Mg Enteric Coated Tablet PO 81 mg Q24HR ANA LUISA Administration Atorvastatin Calcium 80 mg 05/04/20 21:00 05/05/20 20:31 Atorvastatin Calcium 40 Mg Tab PO 80 mg HS ANA LUISA Administration Carvedilol 12.5 mg 05/04/20 17:00 05/05/20 16:35 Carvedilol 6.25 Mg Tab PO 12.5 mg BID- ANA LUISA Administration Enoxaparin Sodium 30 mg 05/05/20 09:00 05/05/20 07:56 Enoxaparin Sodium 30 Mg/0.3 Ml Syringe SC 30 mg 0900 ANA LUISA Administration Nifedipine 90 mg 05/05/20 09:00 05/05/20 07:53 Nifedipine Xl 90 Mg Tab PO 90 mg DAILY ANA LUISA Administration Pantoprazole Sodium 40 mg 05/05/20 09:00 05/05/20 07:55 Pantoprazole 40 Mg Tab PO 40 mg DAILY ANA LUISA Administration Sodium Chloride 10 ml 05/04/20 21:00 05/05/20 20:32 Flush - Normal Saline 10 Ml Syringe IVF 10 ml Q12HR ANA LUISA Administration Valsartan 80 mg 05/05/20 09:00 05/05/20 07:54 Valsartan 80 Mg Tab PO 80 mg DAILY ANA LUISA Administration Hospitalist Exam Vitals: Vital Signs (12 hours) Temp Pulse Resp BP BP Pulse Ox 05/06/20 07:31 97.8 F 67 16 164/74 H 96 05/06/20 03:00 97.7 F 66 16 143/68 H 94 L 05/06/20 00:49 97.6 F 41 L 14 150/86 H 95 Weight Admit Weight 224 lb 8 oz Weight 222 lb 8 oz General Appearance: NAD, awake alert ENT: moist mucosa Heart: RRR, no murmur, no gallops, no rubs Respiratory: CTAB, no wheezes, no rales, no ronchi Gastrointestinal: soft, non-tender, non-distended, normal bowel sounds Extremities: no edema Psychiatric: normal affect, normal behavior, A&O x 3 Hosp A/P - Plan (1) Acute on chronic systolic CHF (congestive heart failure) Code(s): I50.23 - ACUTE ON CHRONIC SYSTOLIC (CONGESTIVE) HEART FAILURE Status: Acute Assessment and Plan: Patient has signs and symptoms of CHF exasperation. He is currently not requiring O2 supplement. Recent cath with EF 45-50% Plan: -O2 supplement as needed -strict I&O, daily weight -Lasix 20 mg iv TID -cont home meds -[facility] as [facility] but results pending -Dr. Nava consulted -Brilinta changed to Plavix as it can cause SOB by itself (2) Hypertensive urgency Code(s): I16.0 - HYPERTENSIVE URGENCY Status: Acute Assessment and Plan: BP highly elevated on arrival. Patient states he is compliant with all his meds, but did not take them this morning as he was coming here. BP improved with IV and PO meds. Plan: -continue home meds -Hydralazine IV prn (3) Elevated troponin Code(s): R77.8 - OTHER SPECIFIED ABNORMALITIES OF PLASMA PROTEINS Status: Acute Assessment and Plan: likely associated with his CHF and/or demand ischemia from HTN. Patient denies chest pain. Plan: -trend troponin- stable -likely just troponin leak from CHF (4) CAD (coronary artery disease) Code(s): I25.10 - ATHSCL HEART DISEASE OF [place] CORONARY ARTERY W/O ANG PCTRS Status: Chronic Assessment and Plan: Patient had recent PCI to mid LCx with PHYLLIS. Plan: -Continue aspirin, Plavix, Coreg, and atorvastatin (5) CKD (chronic kidney disease) stage 3, GFR 30-59 ml/min Code(s): N18.30 - CHRONIC KIDNEY DISEASE, STAGE 3 UNSPECIFIED Status: Chronic Assessment and Plan: Cr stable. Plan: -avoid nephrotoxic agents -Await ECHO results and further cardiology recs -home when cleared by cardiology, possibly later today
[2020-05-06] MEDS: Aspirin 81 mg Enteric Coated Tablet PO SCH (08:49)
[2020-05-06] MEDS: NIFEdipine XL 90 MG TAB PO SCH (08:50)
[2020-05-06] MEDS: Valsartan 80 MG TAB PO SCH (08:50)
[2020-05-06] MEDS: Enoxaparin Sodium 30 MG/0.3 ML SYRINGE SC SCH (08:50)
[2020-05-06] MEDS: Carvedilol 6.25 MG TAB PO SCH ×2 (08:50→17:02)
[2020-05-06] MEDS ORDERED: Clopidogrel Bisulfate 75 MG TAB PO SCH (09:00)
[2020-05-06 12:20] VITALS: TEMP 97.9
--- NOTE | 2020-05-06 13:01 | PDOC.CPN ---
- Subjective Date: 05/06/20 Time: 12:58 Interval history: He is doing much better. breathing is at baseline. No edema. - Review of Systems General: denies: fever/chills, weight/appetite/sleep changes, night sweats, fatigue Respiratory: denies: cough, congestion, shortness of breath, exercise intolerance Cardiovascular: denies: chest pain, palpitation, edema, paroxysmal nocturnal dyspnea, orthopnea Gastrointestinal: denies: nausea, vomiting, diarrhea, constipation, abd pain, GI bleeding Musculoskeletal: denies: pain, tenderness, stiffness, swelling, a rthritis/arthralgias Neurological: denies: numbness, syncope, seizure, weakness - Objective Allergies/Adverse Reactions: Allergies Allergy/AdvReac Type Severity Reaction Status Date / Time No Known Drug Allergies Allergy Verified 05/04/20 10:57 Visit Medications: Current Medications Acetaminophen (Acetaminophen 325 Mg Tab) 650 mg PO Q4H PRN PRN Reason: Headache/Fever/Mild Pain (1-3) Aspirin (Aspirin 81 Mg Enteric Coated Tablet) 81 mg PO Q24HR [facility] Last Admin: 05/06/20 08:49 Dose: 81 mg Documented by: Atorvastatin Calcium (Atorvastatin Calcium 40 Mg Tab) 80 mg PO HS [facility] Last Admin: 05/05/20 20:31 Dose: 80 mg Documented by: Carvedilol (Carvedilol 6.25 Mg Tab) 12.5 mg PO BID[facility] Last Admin: 05/06/20 08:50 Dose: 12.5 mg Documented by: Clopidogrel Bisulfate (Clopidogrel Bisulfate 75 Mg Tab) 75 mg PO DAILY [facility] Last Admin: 05/06/20 08:49 Dose: 75 mg Documented by: Enoxaparin Sodium (Enoxaparin Sodium 30 Mg/0.3 Ml Syringe) 30 mg SC 0900 [facility] Last Admin: 05/06/20 08:50 Dose: 30 mg Documented by: Hydralazine HCl (Hydralazine 20 Mg/Ml Vial) 10 mg SLOW IVP Q4H PRN PRN Reason: Blood Pressure Nifedipine (Nifedipine Xl 90 Mg Tab) 90 mg PO DAILY [facility] Last Admin: 05/06/20 08:50 Dose: 90 mg Documented by: Ondansetron HCl (Ondansetron Pf 4 Mg/2 Ml Vial) 4 mg IVP Q6H PRN PRN Reason: Nausea/Vomiting Pantoprazole Sodium (Pantoprazole 40 Mg Tab) 40 mg PO DAILY [facility] Last Admin: 05/06/20 08:49 Dose: 40 mg Documented by: Sacubitril/Valsartan (Sacubitril 49 Mg/Valsartan 51 Mg Tablet) 1 tab PO BID [facility] Sodium Chloride (Flush - Normal Saline 10 Ml Syringe) 10 ml IVF Q12HR [facility] Last Admin: 05/06/20 08:50 Dose: 10 ml Documented by: Sodium Chloride (Flush - Normal Saline 10 Ml Syringe) 10 ml IVF PRN PRN PRN Reason: Saline Flush Vital Signs & Weight: Vital Signs Temp Pulse Resp BP Pulse Ox 05/06/20 12:11 97.9 F 68 12 133/70 94 L 05/06/20 07:31 97.8 F 67 16 164/74 H 96 05/06/20 03:00 97.7 F 66 16 143/68 H 94 L Admit Weight 224 lb 8 oz Weight 222 lb 8 oz - Physical Exam General: alert & oriented x3 HEENT: mucus membranes moist Neck: supple neck Cardiac: regular rate and rhythm Lungs: clear to auscultation Neuro: grossly intact Abdomen: active bowel sounds Extremities: no edema Skin: clear Musculoskeletal: no pain - Labs Result Diagrams: 05/06/20 05:58 05/06/20 05:58 Troponin/CKMB CK-MB (CK-2) 3.3 ng/mL (0-6.6) 05/04/20 06:55 Troponin I 0.033 ng/mL (< 0.028) H 05/04/20 13:32 - Telemetry Sinus rhythms and dysrhythmias: sinus rhythm - Assessment/Plan Assessment/Plan: 1. Ischemic Cadiomypoathy 2. Dilated Cardiomyopathy 3. EF at 30-35% 4. CAD, s/p stenting to LCx 5. Acute on chronic systolic heart failure, improved. PLAN: - Will stop valsartan and switch to Entresto - Continue other meds - Start Lasix 40 mg PO daily - We discussed lifevest and he agrees to proceed. Lifevest order placed. - Home after lifevest set up completed.
--- NOTE | 2020-05-06 17:22 | PDOC.DS.DS ---
Provider Date of Admission: 05/05/20 17:05 Date of Discharge: 05/06/20 Admitting Provider: Mariluz Metz MD Consultations: Cardiology (Dr. Nava) Primary Care Physician: Elizabeth Cook APRN Course Hospital Course: This is a 59-year-old white male with a history of coronary artery disease r ecently admitted for an NSTEMI and had a stent to his left circumflex. Patient was placed on Brilinta after this stent. Patient presented to the emergency room with shortness of breath and dyspnea on exertion. He was found to be in congestive heart failure exacerbation. Patient was diuresed with Lasix in the hospital and had resolution of his shortness of breath. He had an echocardiogram showing a drop in his ejection fraction to 30 to 35% now. Dr. Patino was consulted. He did stop patient's MARVA inhibitor and Brilinta and started him on Plavix and Entresto. Due to the drop in ejection fraction and frequent biventricular PVCs during his hospitalization he recommended that patient get a LifeVest. Patient's LifeVest is being placed and then he can be discharged home. Pertinent Studies: Echocardiogram 1. Ejection fraction 30 to 35% 2. Grade 2 out of 3 diastolic dysfunction 3. Dilated left ventricle 4. Right ventricular systolic pressure 52 mmHg 5. Small pericardial effusion without tamponade Resuscitation Status: 05/04/20 08:59 Resuscitation Status Routine Resuscitation Status: FULL: Full Resuscitation Lab Results: 05/06/20 05:58 05/06/20 05:58 Abnormal Lab Results - Last 48 hrs 05/05/20 05:18: Creatinine 1.90 H 05/05/20 05:18: RBC 4.25 L, Hgb 13.1 L, Hct 39.0 L, Lymphocytes % 17.3 L, Monocytes % 11.8 H, Monocytes # 1.0 H 05/06/20 05:58: BUN 29 H, Creatinine 1.88 H 05/06/20 05:58: RBC 4.34 L, Hgb 13.7 L, Hct 40.1 L, MCH 31.6 H, Lymphocytes % 20.7 L, Monocytes % 11.3 H, Monocytes # 0.9 H Vitals: Vital Signs (12 hours) Temp Pulse Resp BP Pulse Ox 05/06/20 12:11 97.9 F 68 12 133/70 94 L 05/06/20 07:31 97.8 F 67 16 164/74 H 96 Weight Admit Weight 224 lb 8 oz Weight 222 lb 8 oz Physical Exam: The patient was seen and examined on the day of discharge. Problem Assessment: (1) Acute on chronic systolic CHF (congestive heart failure) EF now 30-35% (2) Hypertensive urgency (3) Elevated troponintype II myocardial infarction from #1 (4) CAD (coronary artery disease) (5) CKD (chronic kidney disease) stage 3, GFR 30-59 ml/min Plan of Treatment: Patient will be discharged home with a LifeVest in place and will follow up with Dr. Nava's clinic. He will be given prescriptions for Plavix and Entresto and his lisinopril will be discontinued. He is to remain on a heart healthy diet with a fluid restriction of 1500 mL/day. Time Spent in discharge related activities (mins): 32 Plan Prescriptions: Sacubitril/Valsartan 49/51 [Entresto 49 mg-51 mg Tablet] 1 tab PO BID #60 tab Clopidogrel Bisulfate [Plavix] 75 mg PO DAILY #30 tablet Home Medications: Medication Instructions Recorded Confirmed Type Atorvastatin Calcium 80 mg PO DAILY 04/22/20 05/06/20 History Carvedilol [Coreg] 12.5 mg PO BID 04/22/20 05/06/20 History Cyanocobalamin/Folic AC/Vit B6 1 tablet PO DAILY 04/22/20 05/06/20 History [Folbic] NIFEdipine [Nifedipine ER] 90 mg PO DAILY 04/22/20 05/06/20 History Aspirin Chewable [Aspirin Chewable 81 mg PO DAILY tab 04/24/20 05/06/20 Rx Tablet] Clopidogrel Bisulfate [Plavix] 75 mg PO DAILY #30 tablet 05/06/20 Rx Sacubitril/Valsartan 49/51 1 tab PO BID #60 tab 05/06/20 Rx [Entresto 49 mg-51 mg Tablet] Allergies: No Known Drug Allergies Allergy (Verified 05/04/20 10:57) PER ER REPORT Activity:: Activity as Tolerated Nourishment:: Fluid Restriction Diet (1500 mL), Heart Healthy Diet, Low Sodium Diet Therapies:: Not Applicable Equipment/Supplies:: Other (LifeVest) IV Therapy:: Not Applicable Referrals: Koko Nava MD [Active] - (As directed) Elizabeth Cook APRN [Primary Care Provider] - (1 to 2 weeks) Disposition: HOME Quality CORE MEASURES:: HF
[2020-05-06 17:29] VITALS: BP 144/66
[2020-05-06] MEDS ORDERED: Sacubitril 49 MG/Valsartan 51 MG TABLET PO SCH (21:00)
== END 2020-05-06 18:38 | disposition home or self-care (01) | DRG 280 ==
LOC: ERS 06:45 → ERHOLD 08:23 → 3SE 20:38 → OBSVTOIN 05-05 17:05
PROVIDERS: ADMIT Internal Medicine; ATTEND Emergency Medicine
DX: I13.0 Hypertensive heart and chronic kidney disease with heart failure and stage 1 through stage 4 chronic kidney disease, or unspecified chronic kidney disease (principal); I50.23 Acute on chronic systolic (congestive) heart failure; I21.A1 Myocardial infarction type 2; Z20.822 Contact with and (suspected) exposure to COVID-19; I16.0 Hypertensive urgency; I25.10 Atherosclerotic heart disease of native coronary artery without angina pectoris; N18.30 Chronic kidney disease, stage 3 unspecified; I42.0 Dilated cardiomyopathy; E78.5 Hyperlipidemia, unspecified; I49.3 Ventricular premature depolarization; I25.5 Ischemic cardiomyopathy; Z95.5 Presence of coronary angioplasty implant and graft; I25.2 Old myocardial infarction; Z87.891 Personal history of nicotine dependence; Z79.899 Other long term (current) drug therapy; Z79.82 Long term (current) use of aspirin
CPT/HCPCS: 36415; 71045; 80048; 80053; 82553; 83880; 84484; 85025; 87635; 93005; 93306; 96372; 96374; 96375; 96376; G0378; J1650; J1940; U0003; U0005

== ENCOUNTER 2020-06-08 02:26 | Inpatient (IN) | payer BC, OTHER ==
[2020-06-08 03:16] LABS: Hemoglobin 14.7 g/dL (14.0-18.0); Mean Corpuscular Hemoglobin 31.3 pg (27.0-31.0); Mean Corpuscular Volume 94.9 fL (78.0-98.0); Mean Platelet Volume 8.2 fL (7.4-10.4); Platelet Count 240 thou/uL (130-400); Red Blood Cell (RBC) Count 4.68 mill/uL (4.70-6.10)
[2020-06-08 03:27] LABS: #Eosinphils 0.3 thou/uL (0.0-0.7); #Lymphocytes 1.8 thou/uL (1.20-3.40); #Monocytes 0.7 thou/uL (0.11-0.59); #Neutrophils 6.9 thou/uL (1.40-6.50); %Basophils 0.5 % (0.0-1.0); %Eosinophils 3.4 % (0.0-10.0); %Lymphocytes 18.2 % (21.0-51.0); %Monocytes 7.4 % (0.0-10.0); %Neutrophils 70.5 % (42.0-75.0); Platelet Morphology Comment Appears Adequate; RBC Morphology Normal; White Blood Cell (WBC) Count 9.8 thou/uL (4.8-10.8)
[2020-06-08] MEDS ORDERED: Furosemide 40 MG/4 ML VIAL ONE (03:30)
[2020-06-08 04:16] LABS: ALT (SGPT) 21 U/L (8-55); AST (SGOT) 22 U/L (5-34); Albumin 4.2 g/dL (3.4-4.8); Alkaline Phosphatase 94 U/L (40-110); Anion Gap 16 mmol/L (10-20); BUN (Urea Nitrogen) 17 mg/dL (8.4-25.7); Bilirubin, Total 0.5 mg/dL (0.2-1.2); Calc. Creatinine Clearance 0 mL/min (70-130); Calcium 9.2 mg/dL (7.8-10.44); Carbon Dioxide 20 mmol/L (23-31); Chloride 105 mmol/L (98-107); Globulin 3.2 g/dL (2.4-3.5); Glucose 103 mg/dL (80-115); Protein, Total 7.4 g/dL (5.8-8.1); Sodium 137 mmol/L (136-145)
[2020-06-08 05:39] VITALS: BMI 33.7
[2020-06-08] MEDS: Carvedilol 6.25 MG TAB PO SCH ×4 (05:57→20:18)
[2020-06-08 06:22] LABS: Troponin I 0.035 ng/mL (< 0.028)
[2020-06-08] MEDS ORDERED: hydrALAZINE 20 MG/ML VIAL SLOW IVP PRN (07:56)
[2020-06-08] MEDS: Sacubitril 49 MG/Valsartan 51 MG TABLET PO SCH ×2 (08:15→20:17)
[2020-06-08] MEDS: Atorvastatin Calcium 40 MG TAB PO SCH (08:16)
[2020-06-08] MEDS: Aspirin Chewable 81 MG TAB PO SCH (08:16)
[2020-06-08] MEDS ORDERED: Acetaminophen 325 MG TAB PO PRN (08:24)
[2020-06-08] MEDS ORDERED: Acetaminophen 650 MG Suppository PR PRN (08:24)
[2020-06-08 08:54] LABS: SARS-CoV-2 PCR by NAA Not Detected (NotDetected)
[2020-06-08] MEDS ORDERED: Non-Formulary Item 1 EACH (Carvedilol [Coreg] 12.5 MG Tab) PO SCH (09:00)
[2020-06-08] MEDS ORDERED: Non-Formulary Item 1 EACH (Atorvastatin Calcium [Atorvastatin Calcium] 80 MG Tablet) PO SCH (09:00)
[2020-06-08] MEDS: Heparin 5,000 UNITS/ML VIAL SC SCH ×2 (09:27→20:18)
[2020-06-08 09:51] LABS: Troponin I 0.032 ng/mL (< 0.028)
[2020-06-08] MEDS: Furosemide 40 MG/4 ML VIAL SLOW IVP SCH (13:05)
[2020-06-09 04:58] LABS: #Basophils 0.1 thou/uL (0.0-0.2); #Eosinphils 0.3 thou/uL (0.0-0.7); #Lymphocytes 1.5 thou/uL (1.20-3.40); #Monocytes 0.7 thou/uL (0.11-0.59); #Neutrophils 4.1 thou/uL (1.40-6.50); %Basophils 0.9 % (0.0-1.0); %Eosinophils 4.4 % (0.0-10.0); %Lymphocytes 22.4 % (21.0-51.0); %Monocytes 10.9 % (0.0-10.0); %Neutrophils 61.3 % (42.0-75.0); Hemoglobin 14.1 g/dL (14.0-18.0); Mean Corpuscular HGB CONC 32.9 g/dL (32.0-36.0); Mean Corpuscular Volume 94.3 fL (78.0-98.0); Mean Platelet Volume 8.2 fL (7.4-10.4); Platelet Count 229 thou/uL (130-400); Red Blood Cell (RBC) Count 4.54 mill/uL (4.70-6.10); White Blood Cell (WBC) Count 6.7 thou/uL (4.8-10.8)
[2020-06-09 05:21] LABS: Phosphorus 3.3 mg/dL (2.3-4.7)
[2020-06-09 05:22] LABS: Anion Gap 13 mmol/L (10-20); BUN (Urea Nitrogen) 23 mg/dL (8.4-25.7); Calc. Creatinine Clearance 49 mL/min (70-130); Calcium 9.3 mg/dL (7.8-10.44); Carbon Dioxide 30 mmol/L (23-31); Chloride 99 mmol/L (98-107); Glucose 98 mg/dL (80-115); Magnesium 1.9 mg/dL (1.6-2.6); Potassium 4.2 mmol/L (3.5-5.1); Sodium 138 mmol/L (136-145)
[2020-06-09] MEDS: Furosemide 40 MG/4 ML VIAL SLOW IVP SCH ×2 (06:14→14:47)
[2020-06-09] MEDS: Heparin 5,000 UNITS/ML VIAL SC SCH (07:44)
[2020-06-09] MEDS: Aspirin Chewable 81 MG TAB PO SCH (07:45)
[2020-06-09] MEDS: Atorvastatin Calcium 40 MG TAB PO SCH (07:45)
[2020-06-09] MEDS: Sacubitril 49 MG/Valsartan 51 MG TABLET PO SCH (07:46)
[2020-06-09] MEDS: Carvedilol 6.25 MG TAB PO SCH (07:46)
[2020-06-09] MEDS ORDERED: Ferrous Gluconate 324 MG TAB PO SCH (09:00)
[2020-06-09] MEDS ORDERED: Clopidogrel Bisulfate 75 MG TAB PO SCH (09:00)
[2020-06-09] MEDS ORDERED: FOLIC AC PO SCH ×2 (09:00)
[2020-06-09] MEDS ORDERED: VIT B6 PO SCH ×2 (09:00)
[2020-06-09] MEDS ORDERED: Non-Formulary Item 1 EACH (Ferrous Gluconate [Ferrous Gluconate] 324 MG Tablet) PO SCH (09:00)
[2020-06-09] MEDS ORDERED: CYANOCOBALAMIN PO SCH ×2 (09:00)
[2020-06-09] MEDS ORDERED: NIFEdipine XL 60 MG TAB PO SCH (09:00)
[2020-06-09 16:28] VITALS: BP 132/75; TEMP 98.2
== END 2020-06-09 18:10 | disposition home or self-care (01) | DRG 291 ==
LOC: ERS 02:26 → OBSVTOIN 04:14 → 2SW 04:14
PROVIDERS: ADMIT Student in an Organized Health Care Education/Training Program; ATTEND Internal Medicine
DX: I13.0 Hypertensive heart and chronic kidney disease with heart failure and stage 1 through stage 4 chronic kidney disease, or unspecified chronic kidney disease (principal); I50.43 Acute on chronic combined systolic (congestive) and diastolic (congestive) heart failure; N17.9 Acute kidney failure, unspecified; I25.10 Atherosclerotic heart disease of native coronary artery without angina pectoris; I25.5 Ischemic cardiomyopathy; E78.5 Hyperlipidemia, unspecified; E66.9 Obesity, unspecified; Z20.822 Contact with and (suspected) exposure to COVID-19; N18.30 Chronic kidney disease, stage 3 unspecified; I25.2 Old myocardial infarction; Z79.82 Long term (current) use of aspirin; Z79.02 Long term (current) use of antithrombotics/antiplatelets; Z91.14 Patient's other noncompliance with medication regimen; Z68.33 Body mass index [BMI] 33.0-33.9, adult
CPT/HCPCS: 36415; 71045; 80048; 80053; 83735; 83880; 84100; 84443; 84484; 85025; 87635; 93005; 93798; 96374; G0378; J1644; J1940; U0003; U0005

== ENCOUNTER 2020-07-01 06:43 | Observation (INO) | payer BC, OTHER ==
[2020-07-01 07:08] LABS: #Eosinphils 0.3 thou/uL (0.0-0.7); #Lymphocytes 1.2 thou/uL (1.20-3.40); #Monocytes 0.5 thou/uL (0.11-0.59); #Neutrophils 5.4 thou/uL (1.40-6.50); %Basophils 0.6 % (0.0-1.0); %Eosinophils 4.5 % (0.0-10.0); %Lymphocytes 15.9 % (21.0-51.0); %Monocytes 6.8 % (0.0-10.0); %Neutrophils 72.2 % (42.0-75.0); Hemoglobin 13.8 g/dL (14.0-18.0); Mean Corpuscular HGB CONC 33.8 g/dL (32.0-36.0); Mean Corpuscular Volume 94.6 fL (78.0-98.0); Mean Platelet Volume 8.5 fL (7.4-10.4); Platelet Count 220 thou/uL (130-400); RBC Distribution Width 12.7 % (11.5-14.5); Red Blood Cell (RBC) Count 4.33 mill/uL (4.70-6.10); White Blood Cell (WBC) Count 7.5 thou/uL (4.8-10.8)
[2020-07-01 08:22] LABS: Albumin 3.9 g/dL (3.4-4.8)
[2020-07-01 08:23] LABS: Chloride 105 mmol/L (98-107); Potassium 4.1 mmol/L (3.5-5.1); Sodium 138 mmol/L (136-145)
[2020-07-01 08:24] LABS: Calcium 9.2 mg/dL (7.8-10.44); Glucose 110 mg/dL (80-115)
[2020-07-01 08:25] LABS: Globulin 2.9 g/dL (2.4-3.5); Protein, Total 6.8 g/dL (5.8-8.1)
[2020-07-01 08:26] LABS: Anion Gap 14 mmol/L (10-20); Bilirubin, Total 0.5 mg/dL (0.2-1.2); Carbon Dioxide 23 mmol/L (23-31)
[2020-07-01 08:27] LABS: Alkaline Phosphatase 95 U/L (40-110)
[2020-07-01 08:28] LABS: Calc. Creatinine Clearance 0 mL/min (70-130)
[2020-07-01 08:29] LABS: BUN (Urea Nitrogen) 26 mg/dL (8.4-25.7)
[2020-07-01 08:30] LABS: ALT (SGPT) 20 U/L (8-55); AST (SGOT) 18 U/L (5-34)
[2020-07-01] MEDS ORDERED: Furosemide 20 MG/2 ML VIAL ONE (08:40)
[2020-07-01] MEDS ORDERED: Calcium Carbonate 500 MG ChewTAB PO PRN (10:35)
[2020-07-01 12:15] LABS: Troponin I 0.025 ng/mL (< 0.028)
[2020-07-01] MEDS ORDERED: Furosemide 40 MG/4 ML VIAL SLOW IVP SCH (14:00)
[2020-07-01 14:27] VITALS: BMI 33.2
[2020-07-01 15:56] LABS: SARS-CoV-2 PCR by NAA Not Detected (NotDetected)
[2020-07-01 16:52] LABS: Troponin I 0.023 ng/mL (< 0.028)
[2020-07-01] MEDS ORDERED: hydrALAZINE 25 MG TAB PO PRN (17:22)
[2020-07-01] MEDS: Sacubitril 49 MG/Valsartan 51 MG TABLET PO SCH (20:22)
[2020-07-01] MEDS: Carvedilol 6.25 MG TAB PO SCH (20:22)
[2020-07-02 07:55] LABS: #Eosinphils 0.2 thou/uL (0.0-0.7); #Lymphocytes 1.3 thou/uL (1.20-3.40); #Monocytes 0.6 thou/uL (0.11-0.59); #Neutrophils 4.1 thou/uL (1.40-6.50); %Basophils 0.6 % (0.0-1.0); %Lymphocytes 20.1 % (21.0-51.0); %Neutrophils 65.4 % (42.0-75.0); Hemoglobin 14.6 g/dL (14.0-18.0); Mean Corpuscular HGB CONC 33.6 g/dL (32.0-36.0); Mean Corpuscular Hemoglobin 31.6 pg (27.0-31.0); Mean Platelet Volume 8.3 fL (7.4-10.4); Platelet Count 225 thou/uL (130-400); RBC Distribution Width 12.7 % (11.5-14.5); Red Blood Cell (RBC) Count 4.64 mill/uL (4.70-6.10); White Blood Cell (WBC) Count 6.2 thou/uL (4.8-10.8)
[2020-07-02 08:04] VITALS: TEMP 98
[2020-07-02 08:14] LABS: Anion Gap 14 mmol/L (10-20); BUN (Urea Nitrogen) 25 mg/dL (8.4-25.7); Calc. Creatinine Clearance 58 mL/min (70-130); Calcium 9.7 mg/dL (7.8-10.44); Carbon Dioxide 24 mmol/L (23-31); Chloride 101 mmol/L (98-107); Glucose 107 mg/dL (80-115); Potassium 3.8 mmol/L (3.5-5.1); Sodium 135 mmol/L (136-145)
[2020-07-02] MEDS ORDERED: Clopidogrel Bisulfate 75 MG TAB PO SCH (09:00)
[2020-07-02] MEDS ORDERED: pyridOXINE 50 MG (B6) TAB PO SCH (09:00)
[2020-07-02] MEDS ORDERED: FOLIC AC PO SCH (09:00)
[2020-07-02] MEDS ORDERED: CYANOCOBALAMIN PO SCH (09:00)
[2020-07-02] MEDS ORDERED: Atorvastatin Calcium 40 MG TAB PO SCH (09:00)
[2020-07-02] MEDS ORDERED: VIT B6 PO SCH (09:00)
[2020-07-02] MEDS ORDERED: Furosemide 40 MG TAB PO SCH (09:00)
[2020-07-02] MEDS ORDERED: Cyanocobalamin (Vitamin B-12) 1,000 MCG TAB PO SCH (09:00)
[2020-07-02] MEDS ORDERED: NIFEdipine XL 90 MG TAB PO SCH (09:00)
[2020-07-02] MEDS ORDERED: Folic Acid 1 MG TAB PO SCH (09:00)
[2020-07-02] MEDS ORDERED: Aspirin Chewable 81 MG TAB PO SCH (09:00)
[2020-07-02] MEDS ORDERED: Spironolactone 25 MG TAB PO SCH (09:00)
[2020-07-02] MEDS ORDERED: Ferrous Gluconate 324 MG TAB PO SCH (09:00)
[2020-07-02] MEDS: Sacubitril 49 MG/Valsartan 51 MG TABLET PO SCH (09:02)
[2020-07-02] MEDS: Carvedilol 6.25 MG TAB PO SCH (09:03)
[2020-07-02 11:32] VITALS: BP 171/79
== END 2020-07-02 12:24 | disposition home or self-care (01) ==
LOC: ERS 06:43 → ERHOLD 09:10 → 2SW 13:58
PROVIDERS: ADMIT Internal Medicine; ATTEND Hospitalist
DX: I13.0 Hypertensive heart and chronic kidney disease with heart failure and stage 1 through stage 4 chronic kidney disease, or unspecified chronic kidney disease (principal); N18.30 Chronic kidney disease, stage 3 unspecified; I50.43 Acute on chronic combined systolic (congestive) and diastolic (congestive) heart failure; I25.10 Atherosclerotic heart disease of native coronary artery without angina pectoris; I25.5 Ischemic cardiomyopathy; E78.5 Hyperlipidemia, unspecified; I25.2 Old myocardial infarction; E66.9 Obesity, unspecified; Z68.32 Body mass index [BMI] 32.0-32.9, adult; Z87.891 Personal history of nicotine dependence; Z79.02 Long term (current) use of antithrombotics/antiplatelets; Z79.82 Long term (current) use of aspirin; Z79.899 Other long term (current) drug therapy; Z95.5 Presence of coronary angioplasty implant and graft; Z20.822 Contact with and (suspected) exposure to COVID-19
CPT/HCPCS: 36415; 71045; 80048; 80053; 83735; 83880; 84484; 85025; 87635; 93005; 94760; 96374; 96376; G0378; J1940; U0003; U0005

== ENCOUNTER 2020-08-19 09:33 | Inpatient (IN) | payer BC, OTHER ==
[2020-08-19 10:24] LABS: #Eosinphils 0.2 thou/uL (0.0-0.7); #Monocytes 0.8 thou/uL (0.11-0.59); #Neutrophils 5.4 thou/uL (1.40-6.50); %Basophils 0.3 % (0.0-1.0); %Eosinophils 2.3 % (0.0-10.0); %Lymphocytes 13.8 % (21.0-51.0); %Monocytes 10.4 % (0.0-10.0); %Neutrophils 73.1 % (42.0-75.0); Mean Corpuscular HGB CONC 35.8 g/dL (32.0-36.0); Mean Corpuscular Hemoglobin 32.3 pg (27.0-31.0); Mean Corpuscular Volume 90.2 fL (78.0-98.0); Platelet Count 212 thou/uL (130-400); RBC Distribution Width 11.7 % (11.5-14.5); Red Blood Cell (RBC) Count 4.03 mill/uL (4.70-6.10); White Blood Cell (WBC) Count 7.4 thou/uL (4.8-10.8)
[2020-08-19 10:44] LABS: ALT (SGPT) 17 U/L (8-55); AST (SGOT) 17 U/L (5-34); Albumin 4.4 g/dL (3.4-4.8); Alkaline Phosphatase 69 U/L (40-110); Anion Gap 17 mmol/L (10-20); BUN (Urea Nitrogen) 102 mg/dL (8.4-25.7); Bilirubin, Total 0.5 mg/dL (0.2-1.2); Calc. Creatinine Clearance 0 mL/min (70-130); Calcium 9.5 mg/dL (7.8-10.44); Carbon Dioxide 22 mmol/L (23-31); Chloride 95 mmol/L (98-107); Globulin 3.1 g/dL (2.4-3.5); Glucose 123 mg/dL (80-115); Potassium 5.2 mmol/L (3.5-5.1); Protein, Total 7.5 g/dL (5.8-8.1); Sodium 129 mmol/L (136-145)
[2020-08-19] MEDS ORDERED: Ondansetron PF 4 MG/2 ML Vial IVP PRN (13:53)
[2020-08-19] MEDS ORDERED: Ondansetron ODT 4 MG TAB PO PRN (13:53)
[2020-08-19] MEDS ORDERED: Senokot S 8.6-50 MG TAB PO PRN (13:53)
[2020-08-19] MEDS ORDERED: Acetaminophen 325 MG TAB PO PRN (14:00)
[2020-08-19 14:08] VITALS: BMI 33.3
[2020-08-19] MEDS: Sodium Chloride 0.9% 1,000 ML IV SCH (14:20)
[2020-08-19 14:48] LABS: Bilirubin Negative (Negative); Blood, Urine Trace (Negative); Glucose, Urine (Dipstick) Negative (Negative); Ketone, Urine Negative (Negative); Leukocyte Negative (Negative); Nitrite Negative (Negative); Protein, Urine (Dipstick) Negative (Neg-Trace); Urobilinogen 0.2 mg/dL (Less than 2); pH, Urine 5.5 (5.0-9.0)
[2020-08-19 14:52] LABS: Bacteria/HPF None Seen HPF (None Seen); RBC/HPF 0-3 HPF (0-3); Squamous Epithelial None Seen HPF (0-3); WBC/HPF 0-3 HPF (0-3)
[2020-08-19 14:56] LABS: Clarity Clear (Clear)
[2020-08-19 15:02] LABS: Urine Culture Reflex No No
[2020-08-19 21:40] LABS: SARS-CoV-2 PCR by NAA Not Detected (NotDetected)
[2020-08-19] MEDS: Carvedilol 25 MG TAB PO SCH (23:00)
[2020-08-20] MEDS: Sodium Chloride 0.9% 1,000 ML IV SCH ×2 (03:25→17:19)
[2020-08-20 05:10] LABS: #Eosinphils 0.2 thou/uL (0.0-0.7); #Lymphocytes 1.6 thou/uL (1.20-3.40); #Monocytes 0.6 thou/uL (0.11-0.59); #Neutrophils 3.5 thou/uL (1.40-6.50); %Basophils 0.8 % (0.0-1.0); %Eosinophils 2.7 % (0.0-10.0); %Lymphocytes 27.1 % (21.0-51.0); %Monocytes 10.7 % (0.0-10.0); %Neutrophils 58.6 % (42.0-75.0); Hemoglobin 11.4 g/dL (14.0-18.0); Mean Corpuscular HGB CONC 35.2 g/dL (32.0-36.0); Mean Corpuscular Hemoglobin 32.1 pg (27.0-31.0); Mean Corpuscular Volume 91.1 fL (78.0-98.0); Mean Platelet Volume 7.9 fL (7.4-10.4); Platelet Count 176 thou/uL (130-400); RBC Distribution Width 11.7 % (11.5-14.5); Red Blood Cell (RBC) Count 3.55 mill/uL (4.70-6.10); White Blood Cell (WBC) Count 5.9 thou/uL (4.8-10.8)
[2020-08-20 05:28] LABS: Anion Gap 14 mmol/L (10-20); BUN (Urea Nitrogen) 99 mg/dL (8.4-25.7); Calc. Creatinine Clearance 19 mL/min (70-130); Calcium 8.7 mg/dL (7.8-10.44); Carbon Dioxide 23 mmol/L (23-31); Chloride 99 mmol/L (98-107); Glucose 91 mg/dL (80-115); Magnesium 1.6 mg/dL (1.6-2.6); Potassium 5.1 mmol/L (3.5-5.1); Sodium 131 mmol/L (136-145)
[2020-08-20] MEDS: NIFEdipine XL 90 MG TAB PO SCH (08:41)
[2020-08-20] MEDS: Pantoprazole 40 MG GRANULES PACKET PO SCH (08:41)
[2020-08-20] MEDS: Stress 600 With Zinc 1 TAB PO SCH (08:42)
[2020-08-20] MEDS: Carvedilol 25 MG TAB PO SCH ×2 (08:42→20:48)
[2020-08-20] MEDS: Clopidogrel Bisulfate 75 MG TAB PO SCH (08:42)
[2020-08-20] MEDS: Aspirin Chewable 81 MG TAB PO SCH (08:42)
[2020-08-21 05:14] LABS: #Eosinphils 0.2 thou/uL (0.0-0.7); #Lymphocytes 1.1 thou/uL (1.20-3.40); #Monocytes 0.5 thou/uL (0.11-0.59); #Neutrophils 3.2 thou/uL (1.40-6.50); %Basophils 0.7 % (0.0-1.0); %Eosinophils 3.6 % (0.0-10.0); %Lymphocytes 22.4 % (21.0-51.0); %Monocytes 10.5 % (0.0-10.0); %Neutrophils 62.8 % (42.0-75.0); Hemoglobin 11.5 g/dL (14.0-18.0); Mean Corpuscular HGB CONC 35.1 g/dL (32.0-36.0); Mean Corpuscular Hemoglobin 32.6 pg (27.0-31.0); Mean Corpuscular Volume 92.8 fL (78.0-98.0); Mean Platelet Volume 8.2 fL (7.4-10.4); Platelet Count 189 thou/uL (130-400); RBC Distribution Width 11.6 % (11.5-14.5); Red Blood Cell (RBC) Count 3.53 mill/uL (4.70-6.10); White Blood Cell (WBC) Count 5.1 thou/uL (4.8-10.8)
[2020-08-21 05:49] LABS: Anion Gap 12 mmol/L (10-20); BUN (Urea Nitrogen) 78 mg/dL (8.4-25.7); Calc. Creatinine Clearance 31 mL/min (70-130); Calcium 8.7 mg/dL (7.8-10.44); Carbon Dioxide 22 mmol/L (23-31); Chloride 106 mmol/L (98-107); Glucose 96 mg/dL (80-115); Potassium 4.9 mmol/L (3.5-5.1); Sodium 135 mmol/L (136-145)
[2020-08-21] MEDS: Sodium Chloride 0.9% 1,000 ML IV SCH (07:18)
[2020-08-21] MEDS ORDERED: hydrALAZINE 25 MG TAB PO PRN ×2 (07:43→14:05)
[2020-08-21] MEDS: Aspirin Chewable 81 MG TAB PO SCH (08:46)
[2020-08-21] MEDS: NIFEdipine XL 90 MG TAB PO SCH (08:46)
[2020-08-21] MEDS: Pantoprazole 40 MG GRANULES PACKET PO SCH (08:46)
[2020-08-21] MEDS: Carvedilol 25 MG TAB PO SCH ×2 (08:46→20:27)
[2020-08-21] MEDS: Clopidogrel Bisulfate 75 MG TAB PO SCH (08:46)
[2020-08-21] MEDS: Stress 600 With Zinc 1 TAB PO SCH (08:46)
[2020-08-21] MEDS: Heparin 5,000 UNITS/ML VIAL SC SCH (20:26)
[2020-08-22] MEDS: Sodium Chloride 0.9% 1,000 ML IV SCH ×2 (01:00→08:35)
[2020-08-22 05:18] LABS: Anion Gap 13 mmol/L (10-20); BUN (Urea Nitrogen) 51 mg/dL (8.4-25.7); Calc. Creatinine Clearance 44 mL/min (70-130); Carbon Dioxide 21 mmol/L (23-31); Chloride 107 mmol/L (98-107); Glucose 84 mg/dL (80-115); Potassium 5.9 mmol/L (3.5-5.1); Sodium 135 mmol/L (136-145)
[2020-08-22 07:26] LABS: Potassium 5.4 mmol/L (3.5-5.1)
[2020-08-22] MEDS: NIFEdipine XL 90 MG TAB PO SCH (08:26)
[2020-08-22] MEDS: Aspirin Chewable 81 MG TAB PO SCH (08:26)
[2020-08-22] MEDS: Stress 600 With Zinc 1 TAB PO SCH (08:26)
[2020-08-22] MEDS: Carvedilol 25 MG TAB PO SCH (08:26)
[2020-08-22] MEDS: Heparin 5,000 UNITS/ML VIAL SC SCH (08:27)
[2020-08-22] MEDS: Clopidogrel Bisulfate 75 MG TAB PO SCH (08:27)
[2020-08-22] MEDS: Pantoprazole 40 MG GRANULES PACKET PO SCH (08:27)
[2020-08-22] MEDS ORDERED: Furosemide 40 MG TAB PO SCH (14:00)
[2020-08-22 14:53] VITALS: BP 123/62; TEMP 98
== END 2020-08-22 14:35 | disposition home or self-care (01) | DRG 683 ==
LOC: ERS 09:33 → 2NO 11:54
PROVIDERS: ADMIT Internal Medicine; ATTEND Family Medicine
DX: N17.9 Acute kidney failure, unspecified (principal); E87.1 Hypo-osmolality and hyponatremia; I50.22 Chronic systolic (congestive) heart failure; I13.0 Hypertensive heart and chronic kidney disease with heart failure and stage 1 through stage 4 chronic kidney disease, or unspecified chronic kidney disease; E87.2 Acidosis; Z20.822 Contact with and (suspected) exposure to COVID-19; E87.5 Hyperkalemia; I25.10 Atherosclerotic heart disease of native coronary artery without angina pectoris; E78.5 Hyperlipidemia, unspecified; D63.1 Anemia in chronic kidney disease; K21.9 Gastro-esophageal reflux disease without esophagitis; T50.1X5A Adverse effect of loop [high-ceiling] diuretics, initial encounter; T50.0X5A Adverse effect of mineralocorticoids and their antagonists, initial encounter; T46.5X5A Adverse effect of other antihypertensive drugs, initial encounter; E86.1 Hypovolemia; N18.4 Chronic kidney disease, stage 4 (severe); Z95.5 Presence of coronary angioplasty implant and graft; I25.2 Old myocardial infarction; Z87.891 Personal history of nicotine dependence; Z79.899 Other long term (current) drug therapy; Z79.82 Long term (current) use of aspirin; Z79.02 Long term (current) use of antithrombotics/antiplatelets
CPT/HCPCS: 36415; 71045; 80048; 80053; 81001; 83735; 83880; 84484; 85025; 93005; 93010; J1644; U0003; U0005

== ENCOUNTER 2020-12-17 14:03 | Emergency (ER) | payer BC ==
[2020-12-17 14:56] LABS: #Basophils 0.1 thou/uL (0.0-0.2); #Eosinphils 0.2 thou/uL (0.0-0.7); #Lymphocytes 1.2 thou/uL (1.20-3.40); #Monocytes 0.6 thou/uL (0.11-0.59); %Basophils 1.3 % (0.0-1.0); %Eosinophils 2.9 % (0.0-10.0); %Lymphocytes 16.4 % (21.0-51.0); %Monocytes 7.8 % (0.0-10.0); %Neutrophils 71.5 % (42.0-75.0); Hemoglobin 15.8 g/dL (14.0-18.0); Mean Corpuscular Hemoglobin 31.6 pg (27.0-31.0); Mean Corpuscular Volume 92.9 fL (78.0-98.0); Mean Platelet Volume 7.9 fL (7.4-10.4); Platelet Count 244 thou/uL (130-400); RBC Distribution Width 12.3 % (11.5-14.5); Red Blood Cell (RBC) Count 4.99 mill/uL (4.70-6.10)
[2020-12-17 15:24] LABS: ALT (SGPT) 20 U/L (8-55); AST (SGOT) 20 U/L (5-34); Albumin 4.2 g/dL (3.4-4.8); Alkaline Phosphatase 100 U/L (40-110); Anion Gap 15 mmol/L (10-20); BUN (Urea Nitrogen) 23 mg/dL (8.4-25.7); Bilirubin, Total 0.4 mg/dL (0.2-1.2); Calc. Creatinine Clearance 0 mL/min (70-130); Calcium 9.8 mg/dL (7.8-10.44); Carbon Dioxide 24 mmol/L (23-31); Chloride 102 mmol/L (98-107); Glucose 108 mg/dL (80-115); Potassium 4.3 mmol/L (3.5-5.1); Protein, Total 7.2 g/dL (5.8-8.1); Sodium 137 mmol/L (136-145)
[2020-12-17 17:45] LABS: Troponin I 0.022 ng/mL (< 0.028)
== END 2020-12-17 18:13 | disposition home or self-care (01) ==
LOC: ERS 14:03
DX: R53.1 Weakness (principal); T46.3X5A Adverse effect of coronary vasodilators, initial encounter; E78.5 Hyperlipidemia, unspecified; I10 Essential (primary) hypertension; I25.2 Old myocardial infarction; Z87.891 Personal history of nicotine dependence; Z79.899 Other long term (current) drug therapy
CPT/HCPCS: 36415; 71045; 80053; 83880; 84484; 85025; 93005

== ENCOUNTER 2021-03-28 07:59 | Observation (INO) | payer BC, OTHER ==
[2021-03-28 08:35] LABS: #Basophils 0.1 thou/uL (0.0-0.2); #Eosinphils 0.1 thou/uL (0.0-0.7); #Lymphocytes 0.6 thou/uL (1.20-3.40); #Monocytes 0.8 thou/uL (0.11-0.59); #Neutrophils 11.3 thou/uL (1.40-6.50); %Basophils 0.5 % (0.0-1.0); %Eosinophils 0.6 % (0.0-10.0); %Lymphocytes 4.8 % (21.0-51.0); %Monocytes 6.1 % (0.0-10.0); Hemoglobin 15.9 g/dL (14.0-18.0); Mean Corpuscular HGB CONC 34.1 g/dL (32.0-36.0); Mean Corpuscular Hemoglobin 31.9 pg (27.0-31.0); Mean Corpuscular Volume 93.4 fL (78.0-98.0); Mean Platelet Volume 7.3 fL (7.4-10.4); Platelet Count 249 thou/uL (130-400); RBC Distribution Width 12.6 % (11.5-14.5); Red Blood Cell (RBC) Count 4.98 mill/uL (4.70-6.10); White Blood Cell (WBC) Count 12.9 thou/uL (4.8-10.8)
[2021-03-28 08:58] LABS: ALT (SGPT) 16 U/L (8-55); AST (SGOT) 17 U/L (5-34); Albumin 4.2 g/dL (3.4-4.8); Alkaline Phosphatase 88 U/L (40-110); Anion Gap 18 mmol/L (10-20); BUN (Urea Nitrogen) 25 mg/dL (8.4-25.7); Bilirubin, Total 0.6 mg/dL (0.2-1.2); Calc. Creatinine Clearance 0 mL/min (70-130); Calcium 9.5 mg/dL (7.8-10.44); Carbon Dioxide 21 mmol/L (23-31); Chloride 96 mmol/L (98-107); Globulin 3.3 g/dL (2.4-3.5); Glucose 121 mg/dL (80-115); Potassium 4.1 mmol/L (3.5-5.1); Protein, Total 7.5 g/dL (5.8-8.1); Sodium 131 mmol/L (136-145)
[2021-03-28] MEDS ORDERED: cefTRIAXone\\ROCEPHIN 1 GM VIAL ONE (10:16)
[2021-03-28] MEDS ORDERED: Azithromycin 500 MG VIAL ONE (10:16)
[2021-03-28 10:52] LABS: SARS-CoV-2 NAA Rapid Test Not Detected (NotDetected)
[2021-03-28 12:09] LABS: Troponin I 0.022 ng/mL (< 0.028)
[2021-03-28] MEDS ORDERED: Bisacodyl 5 MG TAB PO PRN (14:58)
[2021-03-28] MEDS ORDERED: Clopidogrel Bisulfate 75 MG TAB PO SCH (14:58)
[2021-03-28] MEDS ORDERED: Ondansetron PF 4 MG/2 ML Vial IVP PRN (14:58)
[2021-03-28] MEDS ORDERED: Nitroglycerin 0.4 MG TAB (25 Tab Bottle) SL PRN (14:58)
[2021-03-28] MEDS ORDERED: Clopidogrel Bisulfate 75 MG TAB ONE (18:21)
[2021-03-28] MEDS ORDERED: hydrALAZINE 25 MG TAB ONE (21:10)
[2021-03-28] MEDS: Carvedilol 25 MG TAB PO SCH (21:14)
[2021-03-28] MEDS: Sacubitril 49 MG/Valsartan 51 MG TABLET PO SCH (21:14)
[2021-03-28] MEDS: hydrALAZINE 25 MG TAB PO SCH (21:14)
[2021-03-29 08:42] LABS: #Eosinphils 0.1 thou/uL (0.0-0.7); #Lymphocytes 0.8 thou/uL (1.20-3.40); #Monocytes 0.5 thou/uL (0.11-0.59); #Neutrophils 4.8 thou/uL (1.40-6.50); %Basophils 0.7 % (0.0-1.0); %Eosinophils 1.4 % (0.0-10.0); %Lymphocytes 12.7 % (21.0-51.0); %Monocytes 7.3 % (0.0-10.0); %Neutrophils 77.8 % (42.0-75.0); Hemoglobin 13.9 g/dL (14.0-18.0); Mean Corpuscular Hemoglobin 31.8 pg (27.0-31.0); Mean Corpuscular Volume 96.3 fL (78.0-98.0); Mean Platelet Volume 7.7 fL (7.4-10.4); Platelet Count 216 thou/uL (130-400); RBC Distribution Width 12.6 % (11.5-14.5); Red Blood Cell (RBC) Count 4.38 mill/uL (4.70-6.10); White Blood Cell (WBC) Count 6.2 thou/uL (4.8-10.8)
[2021-03-29] MEDS ORDERED: NIFEdipine XL 60 MG TAB PO SCH (09:00)
[2021-03-29] MEDS ORDERED: Atorvastatin Calcium 40 MG TAB PO SCH (09:00)
[2021-03-29 09:09] LABS: Anion Gap 14 mmol/L (10-20); BUN (Urea Nitrogen) 24 mg/dL (8.4-25.7); Calc. Creatinine Clearance 0 mL/min (70-130); Calcium 9.4 mg/dL (7.8-10.44); Carbon Dioxide 25 mmol/L (23-31); Chloride 99 mmol/L (98-107); Glucose 139 mg/dL (80-115); Potassium 3.6 mmol/L (3.5-5.1); Sodium 134 mmol/L (136-145)
[2021-03-29] MEDS ORDERED: Aspirin Chewable 81 MG TAB ONE (09:45)
[2021-03-29] MEDS ORDERED: Furosemide 40 MG TAB ONE (09:45)
[2021-03-29] MEDS ORDERED: NIFEdipine XL 30 MG TAB ONE (09:45)
[2021-03-29] MEDS ORDERED: Clopidogrel Bisulfate 75 MG TAB ONE (09:55)
[2021-03-29] MEDS: Aspirin 81 mg Enteric Coated Tablet PO SCH (09:58)
[2021-03-29] MEDS: Clopidogrel Bisulfate 75 MG TAB PO SCH (10:00)
[2021-03-29] MEDS: Carvedilol 25 MG TAB PO SCH ×2 (10:00→20:36)
[2021-03-29] MEDS: Ferrous Gluconate 324 MG TAB PO SCH (10:00)
[2021-03-29] MEDS: hydrALAZINE 25 MG TAB PO SCH ×3 (10:02→20:36)
[2021-03-29] MEDS: Furosemide 40 MG TAB PO SCH ×2 (10:02→15:05)
[2021-03-29] MEDS: NIFEdipine XL 90 MG TAB PO SCH (10:04)
[2021-03-29] MEDS: Pantoprazole 40 MG GRANULES PACKET PO SCH (10:04)
[2021-03-29] MEDS: Sacubitril 49 MG/Valsartan 51 MG TABLET PO SCH ×2 (10:06→20:36)
[2021-03-29] MEDS ORDERED: cefTRIAXone\\ROCEPHIN 1 GM VIAL ONE (10:12)
[2021-03-29] MEDS: cefTRIAXone\\ROCEPHIN 1 GM in Sodium Chloride 0.9% 100 ML IVPB SCH (10:15)
[2021-03-29] MEDS ORDERED: Azithromycin 500 MG VIAL ONE (12:17)
[2021-03-29] MEDS: Azithromycin 500 MG in Sodium Chloride 0.9% 250 ML 250 ML IVPB SCH (12:25)
[2021-03-29 13:52] VITALS: BMI 34.0
[2021-03-30 04:54] LABS: #Eosinphils 0.2 thou/uL (0.0-0.7); #Lymphocytes 1.1 thou/uL (1.20-3.40); #Monocytes 0.6 thou/uL (0.11-0.59); #Neutrophils 5.4 thou/uL (1.40-6.50); %Basophils 0.4 % (0.0-1.0); %Eosinophils 2.5 % (0.0-10.0); %Monocytes 7.9 % (0.0-10.0); %Neutrophils 74.2 % (42.0-75.0); Hemoglobin 13.6 g/dL (14.0-18.0); Mean Corpuscular Hemoglobin 31.6 pg (27.0-31.0); Mean Corpuscular Volume 95.9 fL (78.0-98.0); Mean Platelet Volume 7.5 fL (7.4-10.4); Platelet Count 221 thou/uL (130-400); RBC Distribution Width 12.6 % (11.5-14.5); Red Blood Cell (RBC) Count 4.31 mill/uL (4.70-6.10); White Blood Cell (WBC) Count 7.2 thou/uL (4.8-10.8)
[2021-03-30 05:16] LABS: Anion Gap 14 mmol/L (10-20); BUN (Urea Nitrogen) 25 mg/dL (8.4-25.7); Calc. Creatinine Clearance 48 mL/min (70-130); Calcium 9.1 mg/dL (7.8-10.44); Carbon Dioxide 26 mmol/L (23-31); Chloride 101 mmol/L (98-107); Glucose 97 mg/dL (80-115); Potassium 3.8 mmol/L (3.5-5.1); Sodium 137 mmol/L (136-145)
[2021-03-30] MEDS: cefTRIAXone\\ROCEPHIN 1 GM in Sodium Chloride 0.9% 100 ML IVPB SCH (09:39)
[2021-03-30] MEDS: Carvedilol 25 MG TAB PO SCH (09:40)
[2021-03-30] MEDS: Aspirin 81 mg Enteric Coated Tablet PO SCH (09:40)
[2021-03-30] MEDS: NIFEdipine XL 90 MG TAB PO SCH (09:40)
[2021-03-30] MEDS: Sacubitril 49 MG/Valsartan 51 MG TABLET PO SCH (09:40)
[2021-03-30] MEDS: Clopidogrel Bisulfate 75 MG TAB PO SCH (09:40)
[2021-03-30] MEDS: hydrALAZINE 25 MG TAB PO SCH ×2 (09:41→15:45)
[2021-03-30] MEDS: Furosemide 40 MG TAB PO SCH ×2 (09:41→14:11)
[2021-03-30] MEDS: Ferrous Gluconate 324 MG TAB PO SCH (09:41)
[2021-03-30] MEDS: Pantoprazole 40 MG GRANULES PACKET PO SCH (09:41)
[2021-03-30] MEDS: Azithromycin 500 MG in Sodium Chloride 0.9% 250 ML 250 ML IVPB SCH (10:30)
[2021-03-30 16:57] VITALS: BP 167/77; TEMP 97.9
== END 2021-03-30 18:44 | disposition home or self-care (01) ==
LOC: ERS 07:59 → INTOOBSV 10:21 → ERHOLD 10:21 → 2NO 03-29 13:11
PROVIDERS: ADMIT Internal Medicine; ATTEND Internal Medicine
DX: I25.110 Atherosclerotic heart disease of native coronary artery with unstable angina pectoris (principal); I13.0 Hypertensive heart and chronic kidney disease with heart failure and stage 1 through stage 4 chronic kidney disease, or unspecified chronic kidney disease; N18.30 Chronic kidney disease, stage 3 unspecified; I50.22 Chronic systolic (congestive) heart failure; N17.9 Acute kidney failure, unspecified; J18.9 Pneumonia, unspecified organism; I25.5 Ischemic cardiomyopathy; E87.1 Hypo-osmolality and hyponatremia; I25.2 Old myocardial infarction; E78.5 Hyperlipidemia, unspecified; K21.9 Gastro-esophageal reflux disease without esophagitis; I08.8 Other rheumatic multiple valve diseases; I31.3 Pericardial effusion (noninflammatory); E66.9 Obesity, unspecified; Z68.34 Body mass index [BMI] 34.0-34.9, adult; Z87.891 Personal history of nicotine dependence; Z79.02 Long term (current) use of antithrombotics/antiplatelets; Z79.82 Long term (current) use of aspirin; Z79.899 Other long term (current) drug therapy; Z88.8 Allergy status to other drugs, medicaments and biological substances; Z95.5 Presence of coronary angioplasty implant and graft; Z20.822 Contact with and (suspected) exposure to COVID-19
CPT/HCPCS: 0240U; 36415; 71045; 71046; 80048; 80053; 83735; 83880; 84484; 85025; 93005; 93010; 93306; J0456; J0696; J3490; J7050

== ENCOUNTER 2021-04-01 10:57 | Outpatient (CLI) | payer BC | END 2021-04-01 10:58 | disposition home or self-care (01) | LOC: BICRAD 10:57 | PROVIDERS: ATTEND Nurse Practitioner Family | DX: J18.9 Pneumonia, unspecified organism (principal); I25.5 Ischemic cardiomyopathy; N17.9 Acute kidney failure, unspecified; I20.0 Unstable angina; R53.1 Weakness; I13.0 Hypertensive heart and chronic kidney disease with heart failure and stage 1 through stage 4 chronic kidney disease, or unspecified chronic kidney disease; I50.43 Acute on chronic combined systolic (congestive) and diastolic (congestive) heart failure; N18.4 Chronic kidney disease, stage 4 (severe) | CPT/HCPCS: 71046 ==

== ENCOUNTER 2021-04-08 10:50 | Outpatient (CLI) | payer BC | END 2021-04-08 10:51 | disposition home or self-care (01) | LOC: BICRAD 10:50 | PROVIDERS: ATTEND Nurse Practitioner Family | DX: Z09 Encounter for follow-up examination after completed treatment for conditions other than malignant neoplasm (principal); I50.43 Acute on chronic combined systolic (congestive) and diastolic (congestive) heart failure; J18.9 Pneumonia, unspecified organism; I25.5 Ischemic cardiomyopathy | CPT/HCPCS: 71046 ==